=== PATIENT | female | born 1955 | race Caucasian/White ===

== ENCOUNTER 2017-12-30 02:04 | Observation (INO) ==
[2017-12-30 02:21] LABS: Basophils # 0.1 K/mcL (0.0-0.2); Basophils % 0.7 %; Eosinophils # 0.2 K/mcL (0.0-0.6); Eosinophils % 2.3 %; Hematocrit 36.9 % (35.3-44.9); Hemoglobin 11.7 g/dL (11.5-15.4); Immature Granulocytes % 0.2 % (0-4); Lymphocytes # 2.9 K/mcL (0.6-4.6); Lymphocytes % 28.8 %; Mean Corpuscular HGB Conc 31.7 g/dL (31.6-35.5); Mean Corpuscular Hemoglobin 24.4 pg (28.0-33.3); Mean Platelet Volume 10.6 fL (9.4-12.4); Monocytes # 1.1 K/mcL (0.0-1.3); Monocytes % 10.6 %; Neutrophils # 5.8 K/mcL (1.6-8.9); Platelet Count 270 K/mcL (140-400); Red Blood Count 4.79 M/mcL (3.82-4.97); Red Cell Distribution Width 14.8 % (11.5-14.5); Segmented Neutrophils % 57.4 %
[2017-12-30 02:26] LABS: Prothrombin Time 10.5 Seconds (9.4-12.1)
[2017-12-30 02:29] LABS: Activated Partial Thrombo Time 27.4 Seconds (26.0-36.0)
[2017-12-30 02:39] LABS: Troponin I < 0.03 ng/mL (< 0.04)
[2017-12-30] MEDS ORDERED: Ondansetron 4 MG/2 ML VIAL IVP ONE (02:55)
[2017-12-30] MEDS ORDERED: Nitroglycerin 0.4 MG TAB.SUBL SL PRN ×2 (02:55→04:37)
[2017-12-30] MEDS ORDERED: Aspirin 81 MG TAB.CHEW PO ONE (02:55)
[2017-12-30 03:14] LABS: BUN/Creatinine Ratio 17 (6-26); Blood Urea Nitrogen 17 mg/dL (8-23); Calcium 9.2 mg/dL (8.6-10.3); Carbon Dioxide 28 mEq/L (23-29); Chloride 106 mEq/L (98-107); Glucose 86 mg/dL (70-105); Osmolality,Calculated 291 (280-300); Potassium 4.1 mEq/L (3.5-5.1); Sodium 140 mEq/L (136-145); eGFR For African Americans > 60 (> 60); eGFR For Non-African Americans 55 (> 60)
--- NOTE | 2017-12-30 04:06 | Emergency Department Note ---
Disposition Clinical Impression: Chest pain Qualifiers: Chest pain type: precordial pain Qualified Code(s): R07.2 - Precordial pain Disposition: Admitted As Inpatient Condition: Good Referrals: Santiago Hutton [Other] Arlyn Mason MD [Family Provider] - Time of Disposition: 04:13 Chest Pain HPI - General Chief Complaint: ED Chest Pain Stated Complaint: cp/neck pain Time Seen by Provider: 12/30/17 02:08 Source: patient Limitations: no limitations Vital Signs Reviewed: Yes Nursing Notes Reviewed: Yes - History of Present Illness HPI Narrative: 62-year-old female presents to the emergency department with a complaint of substernal chest pain for the past 3 days. The pain is intermittent. No radiation of pain. Some nausea with the pain. Also some shortness of breath. No diaphoresis. No palpitations. Patient describes the pain as a pressure and tightness in the mid chest. It is not associated with exertion and not relieved with rest. Patient has a history of a pacemaker secondary to bradycardia. She states that she had sick sinus syndrome and also a history of atrial tachycardia. No LA or coronary artery disease. She had a cardiac catheterization last February and did not have any stents or intervention. Pt complaint: chest pain Onset (ago): day(s) (3) Duration: intermittent Onset: during rest Pain Location: substernal Severity: moderate Severity scale (1-10): 4 Quality: tightness, aching, heaviness, dull Pain Radiation: none Improves with: nothing Worsens with: nothing Associated symptoms: Reports: nausea, dyspnea. Denies: vomiting, diaphoresis, sense of impending doom, syncope, palpitations, fever, cough, leg swelling Treatments prior to arrival chest pain: none - Related Data Allergies Allergy/AdvReac Type Severity Reaction Status Date / Time codeine AdvReac Itching Verified 12/30/17 02:14 All systems ED: reviewed and negative except as stated. Constitutional: Denies: fever, chills Cardiovascular: Reports: chest pain. Denies: palpitations, edema, syncope Respiratory: Reports: dyspnea. Denies: cough, wheezes, hemoptysis Gastrointestinal: Reports: nausea. Denies: abdominal pain, vomiting Chest Pain PMH - Past Medical History Medical history: Reports: non-contributory Psychiatric history: Reports: no psych history - Social History Smoking Status: Never smoker Alcohol use: Reports: occasionally Drug use: Reports: none Physical Exam - General Limitations: no limitations General appearance: alert, in no apparent distress - Head Head exam: atraumatic, normocephalic, normal inspection - Eye Eye exam: Present: normal appearance, PERRL, EOMI. Absent: scleral icterus, conjunctival injection - ENT ENT exam: normal exam, normal oropharynx, mucous membranes moist - Neck Neck exam: Present: normal inspection, full ROM, trachea midline. Absent: tenderness, meningismus, lymphadenopathy - Chest Chest inspection: Present: normal inspection, symmetric chest wall rise. Absent : tenderness - Respiratory Respiratory exam: Present: normal lung sounds bilaterally. Absent: respiratory distress, wheezes, accessory muscle use - Cardiovascular Cardiovascular exam: Present: regular rate, normal rhythm, normal heart sounds - Abdominal Exam Abdominal exam: Present: soft, Non-Tender, normal bowel sounds. Absent: distention, guarding, rebound, rigidity - Extremities Exam Extremities exam: Present: normal inspection, full ROM. Absent: tenderness, pedal edema - Back Exam Back exam: Present: normal inspection. Absent: CVA tenderness (R), CVA tenderness (L) - Neurological Exam Neurological exam: Present: alert, oriented X3. Absent: motor sensory deficit - Psychiatric Psychiatric exam: Present: normal affect, normal mood - Skin Skin exam: Present: warm, dry, intact, pallor. Absent: cyanosis, diaphoresis Course Course Narrative: 62-year-old female presents complaining of substernal chest pain intermittently over the past 3 days. No radiation but nausea and shortness of breath with the pain. Not related to exertion. No history of coronary artery disease but does have a history of a pacemaker due to sick sinus syndrome and bradycardia. Also history of atrial tachycardia. Chest pain workup initiated. Patient received aspirin 324 mg and one nitroglycerin. No improvement in the chest pain with nitroglycerin developed a severe headache. - Consultations Consultation #1: The hospitalist, Dr. Orellana, was consulted and accepted admission of the patient. Vital Signs Temperature 98.2 F 12/30/17 02:08 Pulse Rate 61 12/30/17 02:08 Respiratory Rate 16 12/30/17 02:08 Blood Pressure 131/73 12/30/17 02:08 O2 Sat by Pulse Oximetry 93 12/30/17 02:08 Temperature 98.2 F 12/30/17 02:08 Pulse Rate 60 12/30/17 03:20 Respiratory Rate 16 12/30/17 02:08 Blood Pressure 113/68 12/30/17 03:20 O2 Sat by Pulse Oximetry 92 12/30/17 03:20 Oxygen Delivery Oxygen Delivery Nasal Cannula Chest Pain - Medical Records Medical records reviewed: Yes I reviewed the patient's medical records. - Lab Data Lab results reviewed: Yes I reviewed the patient's lab results. Result diagrams: 12/30/17 02:07 12/30/17 02:07 Lab Results 12/30/17 12/30/17 12/30/17 Range/Units 02:07 02:07 02:07 WBC 10.0 (4.3-11.1) K/mcL RBC 4.79 (3.82-4.97) M/mcL Hgb 11.7 (11.5-15.4) g/dL Hct 36.9 (35.3-44.9) % MCV 77.0 L (83.0-100.0) fL MCH 24.4 L (28.0-33.3) pg MCHC 31.7 (31.6-35.5) g/dL RDW 14.8 H (11.5-14.5) % Plt Count 270 (140-400) K/mcL MPV 10.6 (9.4-12.4) fL Immature Gran % 0.2 (0-4) % Seg Neutrophils % 57.4 % Lymphocytes % 28.8 % Monocytes % 10.6 % Eosinophils % 2.3 % Basophils % 0.7 % Neutrophils # 5.8 (1.6-8.9) K/mcL Lymphocytes # 2.9 (0.6-4.6) K/mcL Monocytes # 1.1 (0.0-1.3) K/mcL Eosinophils # 0.2 (0.0-0.6) K/mcL Basophils # 0.1 (0.0-0.2) K/mcL PT 10.5 (9.4-12.1) Seconds INR 1.0 APTT 27.4 (26.0-36.0) Seconds Sodium 140 (136-145) mEq/L Potassium 4.1 (3.5-5.1) mEq/L Chloride 106 (98-107) mEq/L Carbon Dioxide 28 (23-29) mEq/L BUN 17 (8-23) mg/dL Creatinine 1.01 (0.60-1.20) mg/dL Est GFR ( Amer) > 60 (> 60) Est GFR (Non-Af Amer) 55 L (> 60) BUN/Creatinine Ratio 17 (6-26) Glucose 86 (70-105) mg/dL Calculated Osmolality 291 (280-300) Calcium 9.2 (8.6-10.3) mg/dL Troponin I < 0.03 (< 0.04) ng/mL - Radiology Data Radiology results reviewed: Yes I reviewed the patient's radiology results. Chest X-Ray 12/30/17 02:14 IMPRESSION: No acute cardiopulmonary abnormality. D/ / Juan Pablo Nguyen MD / Juan Pablo Nguyen MD Interpreting Provider: Juan Pablo Nguyen MD - EKG Data EKG attestation: Yes I reviewed and interpreted this EKG. EKG results narrative: Normal sinus rhythm, ventricular rate 61, AR interval 185, QRS duration 100, QT 405, QTC 409. No acute ST segment elevations or depressions. No arrhythmia or ectopy. Normal EKG.
[2017-12-30] MEDS ORDERED: Naloxone 0.4 MG/ML INJ IVP PRN (04:32)
[2017-12-30] MEDS ORDERED: Acetaminophen 325 MG TABLET PO PRN (04:32)
[2017-12-30] MEDS ORDERED: Aspirin 81 MG TAB.CHEW PO STA (04:35)
--- NOTE | 2017-12-30 04:41 | Internal Med History&Physical ---
Date of Encounter: 12/30/17 Time of Encounter: 04:40 Assessment and Plan (1) Chest pain Current visit: Yes Status: Acute 62/female Background history of AICD placed for sick sinus syndrome/atrial tachycardia History of hypertension/hypercholesterolemia Came in for left precordial chest pain. Heart score: 3 Patient had a cardiac catheterization last year in the month of March. According to patient and her cardiac catheter was within normal limit. On examination: JVP not raised, air entry bilaterally equal, no S3 heard. Assessment Chest pain to rule out ACS Plan: Admit as observation. Aspirin/statin/beta troy Cycle troponin Echocardiogram We need medical records from [facility] Close monitoring of the patient I examined this patient in the emergency department room #5. Plan of care explained to the patient. Patient verbalized understanding. Qualifiers: Chest pain type: unspecified Qualified Code(s): R07.9 - Chest pain, unspecified (2) Hypertension Current visit: Yes Status: Acute Patient's blood pressure is within acceptable range. We will continue same medication for now. We will monitor blood pressure very closely Qualifiers: Hypertension type: essential hypertension Qualified Code(s): I10 - Essential (primary) hypertension (3) AICD (automatic cardioverter/defibrillator) present Current visit: Yes Status: Acute Patient has a AICD placed. Indication: Sick sinus syndrome/atrial tachycardia. At this point I do not see any issues with the AICD (4) DVT prophylaxis Current visit: Yes Status: Acute SCD Medical decision making: This patient has a moderate to severe risk of worsening in spite of being on appropriate medication due to the underlying complex medical condition. Internal Medicine - H&P: HPI Chief complaint: chest pain Admitted From: Emergency Dept Plans for Post Hospital Care: Home History of present illness: PCP: [facility]. Cardiology: [facility]. Brief past medical history: Hypertension, AICD placed for sick sinus syndrome/ atrial tachycardia, hyperlipidemia History of present medical illness: Patient is a resident of [facility], now trying to move to [facility]. Patient was here in [place] with her son who is a drilling manager by profession. She was helping her son to take care of his children. Patient has ongoing chest pain for more than 2-3 weeks. Noted that in last 48 hours her pain was worsening significantly. Patient's pain is left precordial region, sharp in nature, nonradiating, localized, has a stress and movement as a exacerbating factor and pain relieved by rest. Patient was concern for ongoing chest pain. This was the reason she came to emergency room for further evaluation. Patient denies short of breath, abdominal pain, nausea , vomiting, dizziness and diarrhea. Workup in the emergency room: Patient was evaluated in the emergency room. Basic labs were drawn. X-ray chest was negative for any acute process. Reason for admission: Chest pain to rule out ACS. Heart score 3. Family history: Noncontributory Past Med Surg Social Fam HX - Past Medical History Medical history: non-contributory Psychiatric history: no psych history - Social History Smoking Status: Never smoker Alcohol use: occasionally Drug use: none Internal Medicine - H&P: Meds 3 Allergy/AdvReac Type Severity Reaction Status Date / Time codeine AdvReac Itching Verified 12/30/17 02:14 All Systems PM: A 10-system review of systems was performed and is negative for pertinent findings except as documented above in the HPI. - Constitutional Constitutional: no chills, no fever(s), no night sweats - EENT Eyes: no change in vision, no discharge, no pain, no photophobia Ears: no ear discharge, no ear pain, no tinnitus Nose, mouth and throat: no dysphagia, no nasal discharge, no neck pain, no sore throat - Cardiovascular Cardiovascular ROS IM: chest pain, diaphoresis, no dyspnea, no lightheadedness, no palpitations, no syncope - Respiratory Respiratory: no cough, no dyspnea, no wheezing, no excessive phlegm production - Gastrointestinal Gastrointestinal: no abdominal pain, no diarrhea, no hematemesis, no hematochezia, no melena, no nausea, no vomiting - Genitourinary Genitourinary: no change in urinary stream, no dysuria, no flank pain, no hematuria - Musculoskeletal Musculoskeletal ROS IM: no numbness, no tingling - Integumentary Integumentary IM: no rash, no unusual bruising - Neurological Neurological ROS: no confusion, no convulsions, no focal weakness, no numbness, no tingling, no tremor(s) - Hematologic/Lymphatic Hematologic/Lymphatic: no easy bruising - Constitutional Vitals: Temp Pulse Resp BP Pulse Ox 98.2 F 60 16 113/68 92 12/30/17 02:08 12/30/17 03:20 12/30/17 02:08 12/30/17 03:20 12/30/17 03:20 General appearance: Present: A&O X 3, pleasant, no acute distress, answers questions appropriately - Head Head exam: Present: atraumatic, normocephalic - Eye Eye exam: Present: PERRL, conjuntiva pink, sclera anicteric Pupils: Present: PERRL - Neck Neck exam general surgery: Present: supple, trachea midline. Absent: lymphadenopathy - Respiratory Respiratory exam: Present: CTAB. Absent: accessory muscle use, rales, rhonchi, wheezes - Cardiovascular Cardiovascular exam: Present: RRR, +S1, +S2. Absent: diastolic murmur, gallop, rubs, systolic murmur - GI/Abdominal GI/Abdominal exam: Present: normal bowel sounds, soft, no peritoneal signs. Absent: distended, tenderness - Extremities Exam Extremities exam: Present: warm, radial pulses palpable and symmetrical. Absent : calf tenderness, cyanotic, pedal edema - Neurological Exam Neurological exam: Present: CN II-XII intact, oriented X3, no focal deficits. Absent: pronater drift, facial droop, speech deficit - Skin Skin exam: Present: dry, intact Internal Med - H&P Results - Labs CBC & Chem 7: 12/30/17 02:07 12/30/17 02:07 Labs: Short CBC 12/30/17 Range/Units 02:07 WBC 10.0 (4.3-11.1) K/mcL Hgb 11.7 (11.5-15.4) g/dL Hct 36.9 (35.3-44.9) % Plt Count 270 (140-400) K/mcL Neutrophils # 5.8 (1.6-8.9) K/mcL BMP 12/30/17 02:07 Sodium 140 Potassium 4.1 Chloride 106 Carbon Dioxide 28 BUN 17 Creatinine 1.01 Glucose 86 Calcium 9.2 Cardiac Enzymes 12/30/17 Range/Units 02:07 Troponin I < 0.03 (< 0.04) ng/mL - Impressions ITS Impressions Chest X-Ray 12/30/17 02:14 IMPRESSION: No acute cardiopulmonary abnormality. D/ / Juan Pablo Nguyen MD / Juan Pablo Nguyen MD Interpreting Provider: Juan Pablo Nguyen MD
[2017-12-30] MEDS ORDERED: 0.9 % Sodium Chloride 1,000 ML IVC SCH (04:45)
[2017-12-30 05:33] LABS: Basophils # 0.1 K/mcL (0.0-0.2); Basophils % 0.7 %; Eosinophils # 0.2 K/mcL (0.0-0.6); Eosinophils % 2.4 %; Hematocrit 34.4 % (35.3-44.9); Hemoglobin 10.6 g/dL (11.5-15.4); Immature Granulocytes % 0.2 % (0-4); Lymphocytes # 2.2 K/mcL (0.6-4.6); Lymphocytes % 26.8 %; Mean Corpuscular HGB Conc 30.8 g/dL (31.6-35.5); Mean Corpuscular Hemoglobin 23.9 pg (28.0-33.3); Mean Corpuscular Volume 77.7 fL (83.0-100.0); Mean Platelet Volume 10.4 fL (9.4-12.4); Monocytes # 0.8 K/mcL (0.0-1.3); Platelet Count 239 K/mcL (140-400); Red Blood Count 4.43 M/mcL (3.82-4.97); Red Cell Distribution Width 14.9 % (11.5-14.5); Segmented Neutrophils % 59.9 %
[2017-12-30 05:40] LABS: Alanine Aminotransferase 15 Units/L (7-52); Albumin 3.8 g/dL (3.5-5.7); Albumin/Globulin Ratio 1.5 (1.1-2.2); Alkaline Phosphatase 87 Units/L (34-104); Aspartate Amino Transferase 15 Units/L (13-39); BUN/Creatinine Ratio 17 (6-26); Bilirubin,Total 0.4 mg/dL (0.3-1.0); Blood Urea Nitrogen 16 mg/dL (8-23); Calcium 8.9 mg/dL (8.6-10.3); Carbon Dioxide 28 mEq/L (23-29); Chloride 106 mEq/L (98-107); Chol/HDL Ratio 1.9 (0-4.9); Cholesterol 144 mg/dL (< 200); Globulin 2.6 g/dL (2.4-3.5); Glucose 95 mg/dL (70-105); HDL Cholesterol 75 mg/dL (40-59); LDL Cholesterol,Calculated 57 mg/dL (0-99); Magnesium 2.3 mg/dL (1.6-2.6); Osmolality,Calculated 289 (280-300); Phosphorous 3.9 mg/dL (2.7-4.5); Potassium 4.3 mEq/L (3.5-5.1); Sodium 139 mEq/L (136-145); Total Protein 6.4 g/dL (6.4-8.9); Triglycerides 62 mg/dL (< 150); eGFR For African Americans > 60 (> 60); eGFR For Non-African Americans 59 (> 60)
[2017-12-30 05:45] LABS: Prothrombin Time 10.8 Seconds (9.4-12.1)
[2017-12-30 05:47] LABS: Activated Partial Thrombo Time 28.2 Seconds (26.0-36.0)
[2017-12-30] MEDS ORDERED: Ondansetron 4 MG/2 ML VIAL IVP PRN (09:08)
--- NOTE | 2017-12-30 18:32 | Event Note ---
Date of Encounter: 12/30/17 Time of Encounter: 16:00 Patient was seen earlier by cath lab radiology technician - presently she is chest pain-free cardiac enzymes have been negative-we have requested records from [facility] which are still pending. Patient was requesting to be discharged home did discuss the patient is at high risk dt cardiac hx and advised to stay for pharm nuclear cardiac stress which will be performed on Monday, otherwise she would have to sign out AM A. she agreed to stay and finish testing
[2017-12-30] MEDS: BuPROPion XL (24 HR) 150 MG TABLET PO SCH (23:02)
[2017-12-30] MEDS: Diltiazem CD (24hr) 120 MG CAPSULE PO SCH (23:02)
[2017-12-30] MEDS: traZODone 50 MG TABLET PO SCH (23:02)
[2017-12-31] MEDS: Cyanocobalamin (B-12) 1,000 MCG TABLET PO SCH (09:12)
[2017-12-31] MEDS: Aspirin Enteric Coated 81 MG Tablet PO SCH (09:12)
[2017-12-31 09:46] LABS: Basophils # 0.1 K/mcL (0.0-0.2); Basophils % 0.7 %; Eosinophils # 0.2 K/mcL (0.0-0.6); Eosinophils % 2.8 %; Hematocrit 33.7 % (35.3-44.9); Hemoglobin 10.4 g/dL (11.5-15.4); Immature Granulocytes % 0.2 % (0-4); Lymphocytes # 1.4 K/mcL (0.6-4.6); Lymphocytes % 17.1 %; Mean Corpuscular HGB Conc 30.9 g/dL (31.6-35.5); Mean Corpuscular Hemoglobin 24.3 pg (28.0-33.3); Mean Corpuscular Volume 78.7 fL (83.0-100.0); Mean Platelet Volume 10.7 fL (9.4-12.4); Monocytes # 0.9 K/mcL (0.0-1.3); Monocytes % 10.4 %; Neutrophils # 5.6 K/mcL (1.6-8.9); Platelet Count 237 K/mcL (140-400); Red Blood Count 4.28 M/mcL (3.82-4.97); Segmented Neutrophils % 68.8 %
[2017-12-31 09:59] LABS: BUN/Creatinine Ratio 11 (6-26); Blood Urea Nitrogen 11 mg/dL (8-23); Carbon Dioxide 29 mEq/L (23-29); Chloride 107 mEq/L (98-107); Glucose 120 mg/dL (70-105); Osmolality,Calculated 289 (280-300); Potassium 4.1 mEq/L (3.5-5.1); Sodium 139 mEq/L (136-145); eGFR For African Americans > 60 (> 60); eGFR For Non-African Americans 55 (> 60)
--- NOTE | 2017-12-31 15:27 | Internal Med Progress Note ---
Date of Encounter: 12/31/17 Time of Encounter: 15:21 - Assessment and plan (1) Chest pain Current Visit: Yes Status: Acute Assessment and plan: 1 originally presented with chest pain that she is experiencing for 2 weeks pain occurring left precordial region describes as sharp nonradiating there are no aggravating or relieving factors pain usually resolves on its. The past 3 days pain has been worsening patient states she has been under a lot of stress. She received nitroglycerin in the ER with no improvement Patient does have a cardiac history last year she underwent a cardiac catheterization [facility] which she did not receive any stents however she had pacemaker placement for sick sinus syndrome/atrial tachycardia which was placed at [facility] we have requested records several times and still awaiting records will have nursing follow-up on Monday-her pipe covering molder is in [place] and she is in the process of moving to [place] and has not established a pipe covering molder in this area at this time- troponins have been negative 2 echo has been ordered 3 patient will stay overnight because cardiac stress are not completed on Monday we will make the patient nothing by mouth at midnight and she will undergo a nuc/pharm cardiac stress test in am 4 continuous cardiac monitoring 5 nitroglycerin as seen for chest pain 6 continue aspirin and statin beta troy Qualifiers: Chest pain type: unspecified Qualified Code(s): R07.9 - Chest pain, unspecified (2) Hypertension Current Visit: Yes Status: Acute Assessment and plan: Presently controlled we will continue with beta troy Qualifiers: Hypertension type: essential hypertension Qualified Code(s): I10 - Essential (primary) hypertension (3) History of permanent cardiac pacemaker placement Current Visit: Yes Status: Acute Assessment and plan: Patient has a history of sick sinus syndrome and had a pacemaker placed last year at [facility]-we will obtain records from [facility] cardiology - Time Spent With Patient less than 15 minutes - Subjective Interval history: Patient denies any chest pain or shortness of breath-she will be nothing by mouth after midnight for stress test in a.m. - Constitutional Vitals: Temp Pulse Resp BP Pulse Ox 98.9 F 64 15 105/68 93 12/31/17 11:18 12/31/17 11:18 12/31/17 11:18 12/31/17 11:18 12/31/17 11:18 General appearance: Present: A&O X 3, pleasant, no acute distress, answers questions appropriately - Head Head exam: Present: atraumatic, normocephalic - Eye Eye exam: Present: PERRL, conjuntiva pink, sclera anicteric Pupils: Present: PERRL - Neck Neck exam general surgery: Present: supple, trachea midline. Absent: lymphadenopathy - Respiratory Respiratory exam: Present: CTAB. Absent: accessory muscle use, rales, rhonchi, wheezes - Cardiovascular Cardiovascular exam: Present: RRR, +S1, +S2. Absent: diastolic murmur, gallop, rubs, systolic murmur - GI/Abdominal GI/Abdominal exam: Present: normal bowel sounds, soft, no peritoneal signs. Absent: distended, tenderness - Extremities Exam Extremities exam: Present: warm, radial pulses palpable and symmetrical. Absent : calf tenderness, cyanotic, pedal edema - Neurological Exam Neurological exam: Present: CN II-XII intact, oriented X3, no focal deficits. Absent: pronater drift, facial droop, speech deficit - Skin Skin exam: Present: dry, intact Internal Medicine: Result - Labs CBC & Chem 7: 12/31/17 08:28 12/31/17 08:28 Labs: Short CBC 12/31/17 Range/Units 08:28 WBC 8.2 (4.3-11.1) K/mcL Hgb 10.4 L (11.5-15.4) g/dL Hct 33.7 L (35.3-44.9) % Plt Count 237 (140-400) K/mcL Neutrophils # 5.6 (1.6-8.9) K/mcL BMP 12/31/17 08:28 Sodium 139 Potassium 4.1 Chloride 107 Carbon Dioxide 29 BUN 11 Creatinine 1.01 Glucose 120 H Calcium 9.0 Cardiac Enzymes 12/30/17 Range/Units 16:55 Troponin I < 0.03 (< 0.04) ng/mL - ABG Interpretation ABG results: PT/INR, D-dimer PT 10.8 Seconds (9.4-12.1) 12/30/17 04:57 Consult Discharge Plan - Plan Referrals: Santiago Hutton [Other] Arlyn Mason MD [Family Provider] -
[2017-12-31] MEDS: traZODone 50 MG TABLET PO SCH (22:54)
[2017-12-31] MEDS: BuPROPion XL (24 HR) 150 MG TABLET PO SCH (22:57)
[2017-12-31] MEDS: Diltiazem CD (24hr) 120 MG CAPSULE PO SCH (22:57)
[2018-01-01] MEDS ORDERED: Regadenoson 0.4 MG/5 ML SYRINGE IVP ONE (06:16)
[2018-01-01] MEDS: Aspirin Enteric Coated 81 MG Tablet PO SCH (11:42)
[2018-01-01] MEDS: Cyanocobalamin (B-12) 1,000 MCG TABLET PO SCH (11:43)
[2018-01-01 15:03] VITALS: BP 113/70
--- NOTE | 2018-01-01 17:27 | Discharge Summary ---
- NOTES TO OUTPATIENT PROVIDER Notes to Outpatient Provider: To follow up with primary care physician, negative stress test for ischemia or infarct Orders not resulted at time of discharge: Pending orders 12/31/17 15:51 NM deanne perf SPECT multi [NM] Routine 01/01/18 14:34 Venous Doppler [EV venous imaging LE RT] Routine Date of Encounter: 01/01/18 Time of Encounter: 17:25 - Discharge Diagnosis (1) Right calf pain Priority: Primary Status: Acute Comments: Patient complained of right calf pain with no physical findings. Doppler was ordered and is negative for DVT (2) Chest pain Priority: Primary Status: Acute Comments: Patient presented with chest pain that she states she was experiencing for 2 weeks. Occurred left precordial region described as sharp and nonradiating with no aggravating or relieving factors and usually resolved with rest. Over the past 3 days the pain had been worsening and she also reported she was under a lot of stress. She received nitroglycerin in the ER with no improvement of her pain. She does have a history of coronary disease. She underwent a cardiac catheterization at [facility] with no stents but placement of a pacemaker for sick sinus syndrome atrial tachycardia. Troponins were negative. She is moving to [place] and has not established with a management consultant in the area at this time. Patient had a stress test today that was negative for ischemia or infarct. She will continue her routine home meds including aspirin and statin as well as beta troy. Qualifiers: Chest pain type: unspecified Qualified Code(s): R07.9 - Chest pain, unspecified (3) History of permanent cardiac pacemaker placement Priority: Secondary Status: Chronic Comments: Patient had pacemaker implant at [facility] (4) Hypertension Priority: Secondary Status: Chronic Comments: Blood pressure has been stable Qualifiers: Hypertension type: essential hypertension Qualified Code(s): I10 - Essential (primary) hypertension Hospital course: Ms. Mccall is a 62 year old female who presented with chest pain. She had negative troponins. 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 Her stress test was negative for ischemia or infarct. She will be discharged home on her current medication regime. Vital signs have been stable. Discharge discussed with: patient, nurse - Time Spent with Patient Total time spent providing and/or coordinating discharge services: Less than 30 minutes - Discharge Medications Home Medications: Aspirin Enteric Coated [Aspirin EC] 81 mg PO QAM 12/30/17 [History] Atorvastatin Calcium [Lipitor] 20 mg PO QAM 12/30/17 [History] BuPROPion XL (24 HR) [Wellbutrin Xl] 150 mg PO HS 12/30/17 [History] Cyanocobalamin (Vitamin B-12) [Vitamin B12] 1,000 mcg PO QAM 12/30/17 [History] Ergocalciferol (VITAMIN D2) [Vitamin D2] 50,000 unit PO RETANA 12/30/17 [History] Levothyroxine Sodium [Levoxyl] 88 mcg PO QAM 12/30/17 [History] Omeprazole [PriLOSEC] 40 mg PO QAM 12/30/17 [History] Paroxetine HCl [Paxil] 40 mg PO HS 12/30/17 [History] Trazodone HCl 100 mg PO HS 12/30/17 [History] dilTIAZem HCl [Diltiazem 24Hr ER] 120 mg PO HS 12/30/17 [History] Allergies/Adverse Reactions: 3 Allergy/AdvReac Type Severity Reaction Status Date / Time codeine AdvReac Itching Verified 12/30/17 02:14 Date of admission: 12/30/17 05:51 Primary care physician: Santiago Hutton Discharging clinician: Kylee Hanson Anticipated date of discharge: 01/01/18 - Constitutional Vitals: Temp Pulse Resp BP Pulse Ox 98.8 F 61 15 113/70 94 01/01/18 15:01 01/01/18 15:01 01/01/18 15:01 01/01/18 15:01 01/01/18 15:01 General appearance: Present: cooperative, A&O X 3, pleasant, answers questions appropriately - Head Head exam: Present: atraumatic, normocephalic - Eye Eye exam: Present: PERRL, conjuntiva pink, sclera anicteric Pupils: Present: PERRL - Neck Neck exam general surgery: Present: supple, trachea midline. Absent: lymphadenopathy - Respiratory Respiratory exam: Present: CTAB. Absent: accessory muscle use, rales, rhonchi, wheezes - Cardiovascular Cardiovascular exam: Present: RRR, +S1, +S2. Absent: diastolic murmur, gallop, rubs, systolic murmur - GI/Abdominal GI/Abdominal exam: Present: normal bowel sounds, soft, no peritoneal signs. Absent: distended, tenderness - Extremities Exam Extremities exam: Present: warm, radial pulses palpable and symmetrical. Absent : calf tenderness, cyanotic, pedal edema - Neurological Exam Neurological exam: Present: CN II-XII intact, oriented X3, no focal deficits. Absent: pronater drift, facial droop, speech deficit - Skin Skin exam: Present: dry, intact, normal color, warm - Patient Status Disposition: Home, Self-Care Condition: Good Functional capacity at discharge: independent ambulation Overall status at discharge: patient is back to baseline - Discharge Instructions Follow Up With: Santiago Hutton [Other] Arlyn Mason MD [Family Provider] - - Diet and Activity Activity: increase activity as tolerated, resume usual activities as tolerated Diet: advance to your usual diet
--- NOTE | 2018-01-02 19:57 | Electrocardiograph Report ---
[place] [id number] Test Date: 2017-12-30 Pat Name: Julianne Mccall Department: 103 Room: [facility] Gender: F Clinical Project Coordinator: [facility] : 1955 Requested By: Yunior Pelaez Order Number: [id number] Reading MD: Nuria Cam Measurements Intervals [place] Rate: 61 P: 17 OR: 185 QRS: -14 QRSD: 100 T: 48 QT: 405 QTc: 409 Interpretive Statements SINUS RHYTHM Electronically Signed On 01-02-2018 19:55:31 EST by Nuria Cam
== END 2018-01-01 18:30 | disposition home or self-care (01) ==
LOC: 3BNU 02:04 → EMEROO 02:04 → SUATTDRO 05:51 → 3BNU 06:30
PROVIDERS: ADMIT Internal Medicine; ATTEND Nurse Practitioner Family

== ENCOUNTER 2018-02-04 19:11 | Observation (INO) ==
--- NOTE | 2018-02-04 19:18 | Emergency Department Note ---
START Narrative - START START: I examined this patient and my medical decision-making was reviewed with the Resident Physician. I agree with the documented findings, disposition and treatment plan as described except to the extent set forth below. 62 yo F presents with chest pain. brought in via ems. they thought she was having runs of V tach. she has a pacer. she is still having ongoing chest pain. she reports cardiac cath last year with no stents placed. will eval for ACS and chest pain work up. pt will need to be admitted due to her history.
--- NOTE | 2018-02-04 19:20 | Emergency Department Note ---
Disposition Clinical Impression: Chest pain Qualifiers: Chest pain type: unspecified Qualified Code(s): R07.9 - Chest pain, unspecified Dyspnea Qualifiers: Dyspnea type: unspecified Qualified Code(s): R06.00 - Dyspnea, unspecified Disposition: Admitted As Inpatient Condition: Good Referrals: Arlyn Mason MD [Family Provider] - Dariana Steiner MD [Primary Care Provider] - Forms: ED Satisfaction Letter Time of Disposition: 21:03 Chest Pain HPI - General Chief Complaint: ED Chest Pain Stated Complaint: chest pain Time Seen by Provider: 02/04/18 19:16 Source: patient, EMS Mode of arrival: EMS Limitations: no limitations Vital Signs Reviewed: Yes Nursing Notes Reviewed: Yes - History of Present Illness HPI Narrative: Patient is a 62-year-old female with past medical history of sick sinus syndrome , has a pacemaker placed, hypertension. She presents today via EMS due to chest pain. EMS states that patient had runs of V. tach while in route but did not require any additional intervention. She states this pain started about an hour ago, as located under her left breast with mild radiation to her back. Denies any associated nausea, vomiting sweating. She does admit to some mild dyspnea. This started while she was at rest sitting in her chair, denies any exertional component. It is rated a 10 out of 10 when it began. She took one nitroglycerin at home and instructed to get down to an 8 out of 10. After that , to call the squad. She was given aspirin 325 mg and an additional nitroglycerin which she states took her pain down to a 5 and is now back up to an 8 out of 10. She does report that she has had recent stress testing and cardiac evaluation. According to previous reports, patient has had an echo and nuclear stress testing in December 2017. Stress testing showed no areas of ischemia. Echocardiogram showed mild LV dysfunction. Patient denies any other belly pain, dysuria, hematuria, numbness, tingling, weakness. Severity scale (1-10): 9 - Related Data Home Medications Medication Instructions Recorded Confirmed Aspirin Enteric Coated [Aspirin EC] 81 mg PO QAM 12/30/17 12/30/17 Atorvastatin Calcium [Lipitor] 20 mg PO QAM 12/30/17 12/30/17 BuPROPion XL (24 HR) [Wellbutrin 150 mg PO HS 12/30/17 12/30/17 Xl] Cyanocobalamin (Vitamin B-12) 1,000 mcg PO QAM 12/30/17 12/30/17 [Vitamin B12] Ergocalciferol (VITAMIN D2) 50,000 unit PO 12/30/17 12/30/17 [Vitamin D2] Levothyroxine Sodium [Levoxyl] 88 mcg PO QAM 12/30/17 12/30/17 Omeprazole [PriLOSEC] 40 mg PO QAM 12/30/17 12/30/17 Paroxetine HCl [Paxil] 40 mg PO HS 12/30/17 12/30/17 Trazodone HCl 100 mg PO 12/30/17 12/30/17 dilTIAZem HCl [Diltiazem 24Hr ER] 120 mg PO HS 12/30/17 12/30/17 Allergies Allergy/AdvReac Type Severity Reaction Status Date / Time codeine AdvReac Itching Verified 12/30/17 02:14 All systems ED: reviewed and negative except as stated. Constitutional: Denies: fever Cardiovascular: Reports: chest pain. Denies: dyspnea on exertion Respiratory: Reports: dyspnea. Denies: cough Gastrointestinal: Denies: abdominal pain, nausea, vomiting, diarrhea Genitourinary: Denies: urgency, dysuria, frequency, hematuria Integumentary: Denies: rash Neurological: Denies: weakness, numbness, paresthesias Chest Pain PMH - Past Medical History Medical history: Reports: non-contributory Psychiatric history: Reports: no psych history - Social History Smoking Status: Never smoker Alcohol use: Reports: occasionally Drug use: Reports: none Physical Exam - General Limitations: no limitations General appearance: alert, in no apparent distress - Head Head exam: atraumatic, normocephalic, normal inspection - Eye Eye exam: Present: normal appearance, PERRL, EOMI - ENT ENT exam: normal exam, normal oropharynx, mucous membranes moist - Neck Neck exam: Present: normal inspection, full ROM, trachea midline - Chest Chest inspection: Present: normal inspection, symmetric chest wall rise. Absent : tenderness, rash - Respiratory Respiratory exam: Present: normal lung sounds bilaterally - Cardiovascular Cardiovascular exam: Present: regular rate, normal rhythm, normal heart sounds - Abdominal Exam Abdominal exam: Present: soft, Non-Tender. Absent: tenderness, distention, guarding, rebound, rigidity - Extremities Exam Extremities exam: Present: normal inspection, full ROM. Absent: tenderness, pedal edema - Neurological Exam Neurological exam: Present: alert, oriented X3 - Psychiatric Psychiatric exam: Present: normal affect, normal mood - Skin Skin exam: Present: warm, dry, intact, normal color Course Course Narrative: Patient was mildly hypertensive. Otherwise, the rest of the vitals were within normal limits. Physical exam was fairly benign. Patient did have relief with previous nitroglycerin prior to arrival. We will give the patient another nitroglycerin and see if this helps. If so, we will start the patient on a nitroglycerin drip. EKG was obtained at bedside and showed no signs of STEMI. No signs of any beats of V tach. Normal sinus rhythm with no acute ST changes. We will obtain chest x-ray and basic blood work, troponin level. If the patient has continued pain, she will need to be admitted for further care. 21:01 troponin negative. Chest x-ray showed no acute cardiopulmonary process. EKG showed no acute ST changes. Patient was placed on nitroglycerin drip. No heparin started at this time because of no elevation in troponin and, negative stress echo testing recently. I discussed the case with the hospitalist Dr. Martinez who agreed not to start heparin at this time. Patient will be admitted for chest pain rule out and trending of troponins. Vital Signs Temperature 98.0 F 02/04/18 19:12 Pulse Rate 68 02/04/18 19:12 Respiratory Rate 16 02/04/18 19:12 Blood Pressure 130/84 02/04/18 19:12 O2 Sat by Pulse Oximetry 93 02/04/18 19:12 Temperature 98.0 F 02/04/18 19:12 Pulse Rate 59 02/04/18 20:49 Respiratory Rate 16 02/04/18 20:49 Blood Pressure 131/66 02/04/18 20:49 O2 Sat by Pulse Oximetry 99 02/04/18 20:49 Oxygen Delivery Oxygen Delivery Nasal Cannula Chest Pain - MDM Narrative Medical decision making narrative: Patient was mildly hypertensive. Otherwise, the rest of the vitals were within normal limits. Physical exam was fairly benign. Patient did have relief with previous nitroglycerin prior to arrival. We will give the patient another nitroglycerin and see if this helps. If so, we will start the patient on a nitroglycerin drip. EKG was obtained at bedside and showed no signs of STEMI. No signs of any beats of V tach. Normal sinus rhythm with no acute ST changes. We will obtain chest x-ray and basic blood work, troponin level. If the patient has continued pain, she will need to be admitted for further care. 21:01 troponin negative. Chest x-ray showed no acute cardiopulmonary process. EKG showed no acute ST changes. Patient was placed on nitroglycerin drip. No heparin started at this time because of no elevation in troponin and, negative stress echo testing recently. I discussed the case with the hospitalist Dr. Martinez who agreed not to start heparin at this time. Patient will be admitted for chest pain rule out and trending of troponins. - Medical Records Medical records reviewed: Yes I reviewed the patient's medical records. - Lab Data Lab results reviewed: Yes I reviewed the patient's lab results. Result diagrams: 02/04/18 19:19 02/04/18 19:19 Lab Results 02/04/18 02/04/18 02/04/18 Range/Units 19:19 19:19 19:19 WBC 7.3 (4.3-11.1) K/mcL RBC 4.34 (3.82-4.97) M/mcL Hgb 10.5 L (11.5-15.4) g/dL Hct 33.4 L (35.3-44.9) % MCV 77.0 L (83.0-100.0) fL MCH 24.2 L (28.0-33.3) pg MCHC 31.4 L (31.6-35.5) g/dL RDW 15.4 H (11.5-14.5) % Plt Count 230 (140-400) K/mcL MPV 10.3 (9.4-12.4) fL Immature Gran % 0.3 (0-4) % Seg Neutrophils % 51.9 % Lymphocytes % 35.6 % Monocytes % 9.3 % Eosinophils % 2.2 % Basophils % 0.7 % Neutrophils # 3.8 (1.6-8.9) K/mcL Lymphocytes # 2.6 (0.6-4.6) K/mcL Monocytes # 0.7 (0.0-1.3) K/mcL Eosinophils # 0.2 (0.0-0.6) K/mcL Basophils # 0.1 (0.0-0.2) K/mcL PT 11.0 (9.4-12.1) Seconds INR 1.0 APTT 34.0 (26.0-36.0) Seconds Sodium 139 (136-145) mEq/L Potassium 4.3 (3.5-5.1) mEq/L Chloride 105 (98-107) mEq/L Carbon Dioxide 27 (23-29) mEq/L BUN 17 (8-23) mg/dL Creatinine 1.00 (0.60-1.20) mg/dL Est GFR ( Amer) > 60 (> 60) Est GFR (Non-Af Amer) 56 L (> 60) BUN/Creatinine Ratio 17 (6-26) Glucose 103 (70-105) mg/dL Calculated Osmolality 290 (280-300) Calcium 9.2 (8.6-10.3) mg/dL Troponin I < 0.03 (< 0.04) ng/mL - Radiology Data Radiology results reviewed: Yes I reviewed the patient's radiology results. Chest X-Ray 02/04/18 19:18 IMPRESSION: No acute cardiopulmonary disease. D/ / Santiago Shetty MD / Santiago Shetty MD Interpreting Provider: Santiago Shetty MD - EKG Data EKG attestation: Yes I reviewed and interpreted this EKG. EKG results narrative: 02/04/2018 at 19:12. Sinus bradycardia. Rate 59. TX 204. QRS 88. QTC 401. Mild left axis deviation. No acute ST elevation or depression. No acute changes from previous EKG on 12/30/2017 S.B.AEvaristoR. - S.B.A.R. Situation: Demographics, MOA Background: Presenting Complaint, Relevant PMH, Meds, & Allergies Assessment: Vital Signs, Course and respsone to treatment, Exam Concerns, Patient/Family Expectation, Pertinant Lab Results Recommendation: Barrier(s) to disposition, Recommendation based on pending studies, treatments, or consults S.B.A.REvaristo Report Given to: Dr. Juan Mccollum Repor Time: 21:03
[2018-02-04] MEDS: Nitroglycerin 0.4 MG TAB.SUBL SL PRN (19:28)
[2018-02-04 19:31] LABS: Basophils # 0.1 K/mcL (0.0-0.2); Basophils % 0.7 %; Eosinophils # 0.2 K/mcL (0.0-0.6); Eosinophils % 2.2 %; Hematocrit 33.4 % (35.3-44.9); Hemoglobin 10.5 g/dL (11.5-15.4); Immature Granulocytes % 0.3 % (0-4); Lymphocytes # 2.6 K/mcL (0.6-4.6); Lymphocytes % 35.6 %; Mean Corpuscular HGB Conc 31.4 g/dL (31.6-35.5); Mean Corpuscular Hemoglobin 24.2 pg (28.0-33.3); Mean Platelet Volume 10.3 fL (9.4-12.4); Monocytes # 0.7 K/mcL (0.0-1.3); Monocytes % 9.3 %; Neutrophils # 3.8 K/mcL (1.6-8.9); Platelet Count 230 K/mcL (140-400); Red Blood Count 4.34 M/mcL (3.82-4.97); Red Cell Distribution Width 15.4 % (11.5-14.5); Segmented Neutrophils % 51.9 %
[2018-02-04 19:59] LABS: BUN/Creatinine Ratio 17 (6-26); Blood Urea Nitrogen 17 mg/dL (8-23); Calcium 9.2 mg/dL (8.6-10.3); Carbon Dioxide 27 mEq/L (23-29); Chloride 105 mEq/L (98-107); Glucose 103 mg/dL (70-105); Osmolality,Calculated 290 (280-300); Potassium 4.3 mEq/L (3.5-5.1); Sodium 139 mEq/L (136-145); Troponin I < 0.03 ng/mL (< 0.04); eGFR For African Americans > 60 (> 60); eGFR For Non-African Americans 56 (> 60)
[2018-02-04] MEDS ORDERED: Nitroglycerin 25 MG/250 ML INFUS..BTL IVC SCH (20:15)
[2018-02-04] MEDS ORDERED: traMADol 50 MG TABLET PO PRN (21:29)
[2018-02-04] MEDS ORDERED: Acetaminophen 325 MG TABLET PO PRN (21:29)
[2018-02-04] MEDS ORDERED: Naloxone 0.4 MG/ML INJ IVP PRN (21:29)
--- NOTE | 2018-02-04 21:36 | Internal Med History&Physical ---
<Karen Valencia - Last Filed: 02/04/18 21:39> Date of Encounter: 02/04/18 Time of Encounter: 21:34 Internal Medicine - H&P: HPI Admitted From: Home Plans for Post Hospital Care: Home History of present illness: Patient is a 62-year-old female with past medical history of sick sinus syndrome , has a pacemaker placed, hypertension. She presents today via EMS due to chest pain. EMS states that patient had runs of V. tach while in route but did not require any additional intervention. She states this pain started about an hour ago, as located under her left breast with mild radiation to her back. Denies any associated nausea, vomiting sweating. She does admit to some mild dyspnea. This started while she was at rest sitting in her chair, denies any exertional component. It is rated a 10 out of 10 when it began. She took one nitroglycerin at home and instructed to get down to an 8 out of 10. After that , to call the squad. She was given aspirin 325 mg and an additional nitroglycerin which she states took her pain down to a 5 and is now back up to an 8 out of 10. She does report that she has had recent stress testing and cardiac evaluation. According to previous reports, patient has had an echo and nuclear stress testing in December 2017. Stress testing showed no areas of ischemia. Echocardiogram showed mild LV dysfunction. Patient denies any other belly pain, dysuria, hematuria, numbness, tingling, weakness. In route to the hospital, she was found to have 1 episode of nonsustained V. tach, which resolved spontaneously. At the ED, her vital signs were stable, labs were unremarkable. Nitroglycerin glycerin drip was started. EKG did not reveal any acute ST-T change. She will be admitted as observation. Past Med Surg Social Fam HX - Past Medical History Medical history: non-contributory Psychiatric history: no psych history - Social History Smoking Status: Never smoker Alcohol use: occasionally Drug use: none - Family History Father Hx Family Cardiac Disorders: Yes (HTN) Internal Medicine - H&P: Meds Aspirin Enteric Coated [Aspirin EC] 81 mg PO QAM 12/30/17 [History] Atorvastatin Calcium [Lipitor] 20 mg PO QAM 12/30/17 [History] BuPROPion XL (24 HR) [Wellbutrin Xl] 150 mg PO HS 12/30/17 [History] Cyanocobalamin (Vitamin B-12) [Vitamin B12] 1,000 mcg PO QAM 12/30/17 [History] Ergocalciferol (VITAMIN D2) [Vitamin D2] 50,000 unit PO RETANA 12/30/17 [History] Levothyroxine Sodium [Levoxyl] 88 mcg PO QAM 12/30/17 [History] Omeprazole [PriLOSEC] 40 mg PO QAM 12/30/17 [History] Paroxetine HCl [Paxil] 40 mg PO HS 12/30/17 [History] Trazodone HCl 100 mg PO HS 12/30/17 [History] dilTIAZem HCl [Diltiazem 24Hr ER] 120 mg PO HS 12/30/17 [History] 3 Allergy/AdvReac Type Severity Reaction Status Date / Time codeine AdvReac Itching Verified 12/30/17 02:14 All Systems PM: A 10-system review of systems was performed and is negative for pertinent findings except as documented above in the HPI. Review of systems: REVIEW OF SYSTEMS: CONSTITUTIONAL: No weight loss, fever, chills, weakness or fatigue. HEENT: Eyes: No visual loss, blurred vision, double vision or yellow sclerae. Ears, Nose, Throat: No hearing loss, sneezing, congestion, runny nose or sore throat. SKIN: No rash or itching. CARDIOVASCULAR: see HPI. RESPIRATORY: No shortness of breath, cough or sputum. GASTROINTESTINAL: No anorexia, nausea, vomiting or diarrhea. No abdominal pain or blood. GENITOURINARY: No dysuria, urgency, or frequency. NEUROLOGICAL: No headache, dizziness, syncope, paralysis, ataxia, numbness or tingling in the extremities. No change in bowel or bladder control. MUSCULOSKELETAL: No muscle, back pain, joint pain or stiffness. HEMATOLOGIC: No anemia, bleeding or bruising. LYMPHATICS: No enlarged nodes. No history of splenectomy. PSYCHIATRIC: No history of depression or anxiety. ENDOCRINOLOGIC: No reports of sweating, cold or heat intolerance. No polyuria or polydipsia. - Constitutional Vitals: Temp Pulse Resp BP Pulse Ox 98.0 F 59 16 131/66 99 02/04/18 19:12 02/04/18 20:49 02/04/18 20:49 02/04/18 20:49 02/04/18 20:49 Exam: PHYSICAL EXAMINATION: GENERAL APPEARANCE: The patient is alert, oriented and in no acute distress. HEENT: Head is normocephalic. The sinuses are nontender. Pupils are equal and reactive. The nares are patent. Oropharynx clear without lesions. NECK: Supple without lymphadenopathy. HEART: Regular rate and rhythm. LUNGS: No crackles or wheezes are heard. ABDOMEN: Soft, nontender, nondistended with good bowel sounds heard. Inguinal area is normal. EXTREMITIES: Without cyanosis, clubbing or edema. NEUROLOGICAL: Gross nonfocal. SKIN: Warm and dry without any rash. Internal Med - H&P Results - Labs CBC & Chem 7: 02/04/18 19:19 02/04/18 19:19 Labs: Short CBC 02/04/18 Range/Units 19:19 WBC 7.3 (4.3-11.1) K/mcL Hgb 10.5 L (11.5-15.4) g/dL Hct 33.4 L (35.3-44.9) % Plt Count 230 (140-400) K/mcL Neutrophils # 3.8 (1.6-8.9) K/mcL BMP 02/04/18 19:19 Sodium 139 Potassium 4.3 Chloride 105 Carbon Dioxide 27 BUN 17 Creatinine 1.00 Glucose 103 Calcium 9.2 Cardiac Enzymes 02/04/18 Range/Units 19:19 Troponin I < 0.03 (< 0.04) ng/mL - Impressions ITS Impressions Chest X-Ray 02/04/18 19:18 IMPRESSION: No acute cardiopulmonary disease. D/ / Santiago Shetty MD / Santiago Shetty MD Interpreting Provider: Santiago Shetty MD - Assessment and plan (1) Chest pain Current Visit: Yes Status: Acute Assessment and plan: - Typical chest pain, CV risk factors including hypertension. -EKG no acute ST-T change, troponin negative for the first set. suspicious for unstable angina. - Continue telemetry monitoring, continue Nitro gtt. - Pacemaker interrogation in the morning. - Consult cardiology if indicated. Qualifiers: Chest pain type: unspecified Qualified Code(s): R07.9 - Chest pain, unspecified (2) Hypertension Current Visit: No Status: Chronic Assessment and plan: - BP controlled, continue home medications. Qualifiers: Hypertension type: essential hypertension Qualified Code(s): I10 - Essential (primary) hypertension (3) History of permanent cardiac pacemaker placement Current Visit: No Status: Acute Assessment and plan: - As above. (4) Sick sinus syndrome Current Visit: No Status: Chronic Assessment and plan: - Has a pacemaker. (5) Nonsustained ventricular tachycardia Current Visit: Yes Status: Acute Assessment and plan: - 1 episode of nonsustained V. tach, resolved spontaneously. - Potassium and a calcium within normal limits, will check magnesium. - EKG sinus rhythm with first-degree AV block. Normal QTC. - Pacemaker interrogation in the morning. - Time Spent With Patient Total time spent is greater than 50% in coordination of care (as documented) at patient's floor/unit and/or counseling patient: Greater than 35 minutes <Aida Mcduffie - Last Filed: 02/05/18 05:17> Date of Encounter: 02/04/18 Internal Medicine - H&P: HPI History of present illness: Ms. Mccall is a 62 year old female All Systems PM: A 10-system review of systems was performed and is negative for pertinent findings except as documented above in the HPI. - Constitutional Vitals: Temp Pulse Resp BP Pulse Ox 97.7 F 61 15 106/68 100 02/05/18 04:01 02/05/18 04:01 02/05/18 04:01 02/05/18 04:01 02/05/18 04:01 Internal Med - H&P Results - Labs CBC & Chem 7: 02/05/18 04:00 02/05/18 04:00 Labs: Short CBC 02/05/18 Range/Units 04:00 WBC 7.1 (4.3-11.1) K/mcL Hgb 10.2 L (11.5-15.4) g/dL Hct 32.6 L (35.3-44.9) % Plt Count 207 (140-400) K/mcL BMP 02/05/18 04:00 Sodium 140 Potassium 3.9 Chloride 107 Carbon Dioxide 33 H BUN 15 Creatinine 0.87 Glucose 91 Calcium 8.9 Cardiac Enzymes 02/05/18 Range/Units 04:00 Troponin I < 0.03 (< 0.04) ng/mL - Attending Attestation I have personally performed a face to face evaluation on this patient. I have reviewed and agree with the care plan provided by LALO Valencia . History and Exam by me shows: Ms. Mccall is a 62 y/o F with past medical history of sick sinus syndrome, has a pacemaker placed and hypertension who recently had negative NM stress test on 01/01/18 now she presented to ER sudden onset left side chest pain radiating to her neck. Pt stated her CP slightly relived with Nitro. So pt was started on Nitro gtt in the ER. Now she feels better. Gen: A,A< O x3 Chest : Diminishes BS b/l no crackles Heart: S1S2 + RRR No murmurs Abd: Soft NT a/p 1. Acute unstable angina so far negative trop no acute EKG changes however her CP is angina equivalent and improved with Nitro so started her on Heparin gtt Titrate the Nitro as she tolerates Card consulted for further eval 2. NSVT Need pacemaker interrogation close monitoring of K+ and Mg - Assessment and plan (1) Chest pain Current Visit: Yes Status: Acute Qualifiers: Chest pain type: unspecified Qualified Code(s): R07.9 - Chest pain, unspecified (2) Hypertension Current Visit: No Status: Chronic Qualifiers: Hypertension type: essential hypertension Qualified Code(s): I10 - Essential (primary) hypertension (3) History of permanent cardiac pacemaker placement Current Visit: No Status: Acute (4) Sick sinus syndrome Current Visit: No Status: Chronic (5) Nonsustained ventricular tachycardia Current Visit: Yes Status: Acute - Time Spent With Patient Total time spent is greater than 50% in coordination of care (as documented) at patient's floor/unit and/or counseling patient:
[2018-02-04] MEDS ORDERED: Heparin 25,000 UNIT/500 ML D5W 25,000 UNIT/500 ML BAG IVC SCH (22:00)
[2018-02-05] MEDS ORDERED: traZODone 50 MG TABLET PO SCH (01:00)
[2018-02-05] MEDS: BuPROPion XL (24 HR) 150 MG TABLET PO SCH ×3 (02:18→21:49)
[2018-02-05 04:38] LABS: Hematocrit 32.6 % (35.3-44.9); Hemoglobin 10.2 g/dL (11.5-15.4); Mean Corpuscular HGB Conc 31.3 g/dL (31.6-35.5); Mean Corpuscular Volume 76.7 fL (83.0-100.0); Mean Platelet Volume 10.6 fL (9.4-12.4); Platelet Count 207 K/mcL (140-400); Red Blood Count 4.25 M/mcL (3.82-4.97); Red Cell Distribution Width 15.8 % (11.5-14.5)
[2018-02-05 04:59] LABS: BUN/Creatinine Ratio 17 (6-26); Blood Urea Nitrogen 15 mg/dL (8-23); Calcium 8.9 mg/dL (8.6-10.3); Chloride 107 mEq/L (98-107); Cholesterol 127 mg/dL (< 200); Glucose 91 mg/dL (70-105); HDL Cholesterol 65 mg/dL (40-59); LDL Cholesterol,Calculated 49 mg/dL (0-99); Osmolality,Calculated 290 (280-300); Potassium 3.9 mEq/L (3.5-5.1); Sodium 140 mEq/L (136-145); Triglycerides 64 mg/dL (< 150); eGFR For African Americans > 60 (> 60); eGFR For Non-African Americans > 60 (> 60)
[2018-02-05 05:01] LABS: Activated Partial Thrombo Time 176.6 Seconds (26.0-36.0)
[2018-02-05 05:20] LABS: Heparin anti-factor XA UFH 0.93 IU/mL (0.30-0.70)
[2018-02-05] MEDS: Aspirin Enteric Coated 81 MG Tablet PO SCH (08:19)
[2018-02-05] MEDS: Cyanocobalamin (B-12) 1,000 MCG TABLET PO SCH (08:47)
--- NOTE | 2018-02-05 10:36 | Cardiology Consult Note ---
<Juan Diego Galindo - Last Filed: 02/05/18 10:40> Date of Encounter: 02/05/18 Time of Encounter: 10:30 Assessment and Plan (1) Chest pain Status: Acute C/o atypical chest pain. Troponin negative x3. EKG with no acute ST changes. Reports minimal CAD on LHC one year ago. Will order reports from [facility]. Check device for arrhythmias. Check TTE. Okay to stop heparin gtt. ACS ruled out. Qualifiers: Chest pain type: unspecified Qualified Code(s): R07.9 - Chest pain, unspecified (2) Nonsustained ventricular tachycardia Status: Acute NSVT seen in EMS and caught on telemetry. Check TTE. Check PPM. electrolytes are normal. Keep potassium around 4.0 and magnesium around 2.0. Reported Minimal CAD on LHC one year ago. WIll obtain records from [facility]. Discussion w patient/family: The assessment and plan as outlined above was discussed with the patient and/or family members who expressed understanding and agreement. All questions were answered. Thank you for involving us in the care of your patient. Please call with any questions. History of Present Illness Consult date: 02/05/18 Requesting physician: Aida Mcduffie Consult reason: Chest pain, VT Chief complaint: Chest pain History of present illness: Ms. Mccall is a 62 year old female with past medical history of SSS s/p PPM, HTN, and gastric bypass who presents with chest pain. C/o left sided dull ache and intense pressure in her left chest while laying in bed. She took two SL NTG at home with minimal relief and called EMS. While in EMS she was reported to have a run of NSVT that spontaneously resolved. She states she felt similar chest discomfort before but not as bad. On February 26 2017 she underwent LHC at [facility] and was found to have minimal CAD (per patient). Troponin are negative x3. Reports history of tachycardia. She follows with Dr. Olguin at [facility]. Past Med Surg Social Fam HX - Past Medical History Medical history: non-contributory, hypertension, other (SSS, atrial tachycardia) Psychiatric history: no psych history - Past Surgical History Surgical History: cholecystectomy, hysterectomy, pacemaker - Social History Smoking Status: Never smoker Smokeless Tobacco Status: No Alcohol use: occasionally Drug use: none - Family History Father Hx Family Cardiac Disorders: Yes (HTN) Medications and Allergies Aspirin Enteric Coated [Aspirin EC] 81 mg PO QAM 12/30/17 [History] Atorvastatin Calcium [Lipitor] 20 mg PO QAM 12/30/17 [History] BuPROPion XL (24 HR) [Wellbutrin Xl] 150 mg PO HS 12/30/17 [History] Cyanocobalamin (Vitamin B-12) [Vitamin B12] 1,000 mcg PO QAM 12/30/17 [History] Ergocalciferol (VITAMIN D2) [Vitamin D2] 50,000 unit PO RETANA 12/30/17 [History] Levothyroxine Sodium [Levoxyl] 88 mcg PO QAM 12/30/17 [History] Omeprazole [PriLOSEC] 40 mg PO BID 12/30/17 [History] Paroxetine HCl [Paxil] 40 mg PO HS 12/30/17 [History] Trazodone HCl 100 mg PO HS 12/30/17 [History] dilTIAZem HCl [Diltiazem 24Hr ER] 120 mg PO HS 12/30/17 [History] Methocarbamol [Robaxin] 1,000 mg PO QID PRN 02/05/18 [History] 3 Allergy/AdvReac Type Severity Reaction Status Date / Time codeine AdvReac Itching Verified 02/05/18 08:59 All Systems Review: The remainder of the systems were reviewed and are negative Physical Examination Vital Signs, Last 4 Hours Temp Pulse Resp BP Pulse Ox 02/05/18 08:51 99 02/05/18 08:19 97.9 F 62 14 115/58 100 General: Conversant, No Apparent Distress HEENT: Atraumatic, Normocephaly, Mucus Membranes Moist Neck: No JVD, Normal carotid pulses Cardiac: Reg Rate and Rhythm, Normal S1 and S2, No Murmur Lungs: Normal Breath Sounds, No Wheeze, Rales, Rhonchi Neuro: Alert and responsive, No focal deficits noted Abdomen: Soft, Non-Tender Skin: No rashes noted on visualized skin Musculoskeletal: No Chest Wall Tenderness Extremities: No Clubbing, No Cyanosis, No Edema, Normal Pulses Results 02/05/18 04:00 02/05/18 04:00 Lab Results 02/05/18 02/05/18 02/05/18 04:00 04:00 04:00 WBC 7.1 Hgb 10.2 L Hct 32.6 L Plt Count 207 APTT Sodium 140 Potassium 3.9 Chloride 107 Carbon Dioxide 33 H BUN 15 Creatinine 0.87 Glucose 91 Calcium 8.9 Troponin I < 0.03 02/05/18 02/05/18 04:00 09:54 WBC Hgb Hct Plt Count APTT 176.6 H* D Sodium Potassium Chloride Carbon Dioxide BUN Creatinine Glucose Calcium Troponin I < 0.03 - Imaging and Cardiology Echo: pending Cardiac cath: other (reports ordered) - EKG Interpretation EKG results cardiology: personally reviewed (SR, no acute ST changes) Consult Discharge Plan - Plan Additional Instructions: Return to ER for new or worsening symptoms. Followup with family doctor and bird raiser as scheduled. Referrals: Roby Chin MD [Non-Partnered Physician] - 02/14/18 9:30 am (Dr. Steiner unavailable for 1 week followup - followup with Dr. Chin in same office. ) Casandra Olguin MD [Non-Partnered Physician] - 02/21/18 8:30 am (Cardiology, [facility], 1 week ) <Roby Serra - Last Filed: 02/12/18 20:34> Date of Encounter: 02/05/18 Time of Encounter: 17:00 - Attending Attestation I have personally performed a face to face evaluation on this patient. I have reviewed and agree with the care plan. History and Exam by me shows: CC: chest pain PT reports sudden onset left sided chest Pain, , dull ache, occurred at rest, lasted twenty minutes, 8/10 at most severe, not relieved with two sl ntg, called squad, evaluated, chest pain resolved in route to ER. EMS thought she had a run of NSVT on monitor, but could not catch strip. She is now pain free. She has a history of similar chest pain, underwent LHC 2017 at [facility], reportedly normal coronaries. PMH: reviewed, [facility] records requested PE: pt seen and examined, agree with documentation as above IMP 1. Chest pain, atypical, has ruled out for acute myocardial necrosis, previous stress/cath normal, eval for non cardiac causes of chest pain 2. NSVT: not able to locate rhythm strip, now in NSR 3. SSS with [facility] - will interogate, determine if had significant arrhythmia, further recomendations to follow. Will follow with you as pacer interrogation and old records obtained. Assessment and Plan Discussion w patient/family: The assessment and plan as outlined above was discussed with the patient and/or family members who expressed understanding and agreement. All questions were answered. Thank you for involving us in the care of your patient. Please call with any questions. History of Present Illness History of present illness: Ms. Mccall is a 62 year old female All Systems Review: The remainder of the systems were reviewed and are negative Results 02/05/18 04:00 02/05/18 04:00
[2018-02-05] MEDS: Nitroglycerin 0.4 MG TAB.SUBL SL PRN (11:12)
[2018-02-05] MEDS ORDERED: Ketorolac 30 MG/ML VIAL IVP ONE (13:14)
[2018-02-05] MEDS ORDERED: Methocarbamol 500 MG TABLET PO PRN (13:16)
[2018-02-05] MEDS: Ondansetron 4 MG/2 ML VIAL IVP PRN (14:07)
--- NOTE | 2018-02-05 16:19 | Internal Med Progress Note ---
Date of Encounter: 02/05/18 Time of Encounter: 16:08 - Assessment and plan (1) Chest pain Current Visit: Yes Status: Acute Assessment and plan: Continues to have mild chest pain. Treated with nitroglycerin. Cardiology consult appreciated. Recommended to stop IV heparin. We will obtain records from [facility] and follow. Qualifiers: Chest pain type: precordial pain Qualified Code(s): R07.2 - Precordial pain (2) Nonsustained ventricular tachycardia Current Visit: Yes Status: Acute Assessment and plan: Continue to monitor with telemetry. Cardiology following. (3) Hypertension Current Visit: Yes Status: Chronic Assessment and plan: Blood pressure is well controlled. Continue Cardizem Qualifiers: Hypertension type: essential hypertension Qualified Code(s): I10 - Essential (primary) hypertension (4) Sick sinus syndrome Current Visit: No Status: Chronic Assessment and plan: Status post permanent pacemaker (5) History of permanent cardiac pacemaker placement Current Visit: No Status: Chronic Assessment and plan: Cardiology will check pacemaker. (6) Neck pain, bilateral Current Visit: Yes Status: Acute Assessment and plan: Patient having bilateral neck pain. Without any rigidity. Could be from muscle spasm. Patient does take methocarbamol at home. Will resume. If no improvement, consider CT scan of the circumflex the cervical spine for further evaluation. No signs of meningitis at this time - Time Spent With Patient Total time spent is greater than 50% in coordination of care (as documented) at patient's floor/unit and/or counseling patient: - Subjective Interval history: Patient complains of continued mild chest pain. No relation to activity. Also has bilateral neck pain. No neck rigidity or stiffness. No photophobia. No fever or chills. No shortness of breath. - Constitutional Vitals: Temp Pulse Resp BP Pulse Ox 98 F 60 20 126/60 96 02/05/18 14:02 02/05/18 14:02 02/05/18 14:02 02/05/18 14:02 02/05/18 14:02 General appearance: Present: cooperative, A&O X 3, answers questions appropriately - Neck Neck exam general surgery: Present: supple, trachea midline. Absent: lymphadenopathy - Respiratory Respiratory exam: Present: CTAB. Absent: accessory muscle use, rales, rhonchi, wheezes - Cardiovascular Cardiovascular exam: Present: RRR, +S1, +S2. Absent: diastolic murmur, gallop, rubs, systolic murmur - GI/Abdominal GI/Abdominal exam: Present: normal bowel sounds, soft, no peritoneal signs. Absent: distended, tenderness - Extremities Exam Extremities exam: Present: warm, radial pulses palpable and symmetrical. Absent : calf tenderness, cyanotic, pedal edema - Neurological Exam Neurological exam: Present: CN II-XII intact, oriented X3, no focal deficits. Absent: facial droop, speech deficit - Skin Skin exam: Present: dry, intact Internal Medicine: Result - Labs CBC & Chem 7: 02/05/18 04:00 02/05/18 04:00 Labs: Short CBC 02/05/18 Range/Units 04:00 WBC 7.1 (4.3-11.1) K/mcL Hgb 10.2 L (11.5-15.4) g/dL Hct 32.6 L (35.3-44.9) % Plt Count 207 (140-400) K/mcL BMP 02/05/18 04:00 Sodium 140 Potassium 3.9 Chloride 107 Carbon Dioxide 33 H BUN 15 Creatinine 0.87 Glucose 91 Calcium 8.9 Cardiac Enzymes 02/05/18 02/05/18 Range/Units 04:00 09:54 Troponin I < 0.03 < 0.03 (< 0.04) ng/mL - ABG Interpretation ABG results: PT/INR, D-dimer PT 11.0 Seconds (9.4-12.1) 02/04/18 19:19 Consult Discharge Plan - Plan Referrals: Arlyn Mason MD [Family Provider] - Dariana Steiner MD [Primary Care Provider] -
[2018-02-05] MEDS: *HR* Heparin 5,000 UNIT/ML VIAL SQ SCH (17:24)
[2018-02-05] MEDS ORDERED: Diltiazem CD (24hr) 120 MG CAPSULE PO SCH (21:00)
[2018-02-05] MEDS: traZODone 50 MG TABLET PO SCH (21:49)
[2018-02-06 01:35] LABS: Carbon Dioxide 24 mEq/L (23-29)
[2018-02-06] MEDS: *HR* Heparin 5,000 UNIT/ML VIAL SQ SCH ×2 (06:38→16:27)
[2018-02-06] MEDS: Aspirin Enteric Coated 81 MG Tablet PO SCH (12:15)
[2018-02-06] MEDS: Cyanocobalamin (B-12) 1,000 MCG TABLET PO SCH (12:15)
[2018-02-06] MEDS: Ondansetron 4 MG/2 ML VIAL IVP PRN (12:15)
--- NOTE | 2018-02-06 13:21 | Event Note ---
Date of Encounter: 02/06/18 Time of Encounter: 08:00 - Cardiology Event Note Inpatient device check completed 02/05/18 and reviewed. Normal functioning device. No events recorded. 23% atrial pacing and 3% V pacing. 10 years on battery.
--- NOTE | 2018-02-06 13:24 | Cardiology Progress Note ---
Date of Encounter: 02/06/18 Time of Encounter: 13:21 Assessment and Plan (1) Chest pain Current Visit: Yes Status: Acute C/o atypical chest pain. Troponin negative x3. EKG with no acute ST changes. Reports minimal CAD on LHC one year ago. Recieved in-complete reports from [facility]. Discussed with nursing staff. They are re-ordering. We did receive ED visit report from 09/2017. Report note states patient seen for chest pain and recent TTE and LHC was unremarkable. Device check did not show any arrhythmias. Check TTE today. If no concerning findings cardiology will sign off. Patient can follow with her Stoper at [facility], Dr. Olguin. Qualifiers: Chest pain type: precordial pain Qualified Code(s): R07.2 - Precordial pain (2) Nonsustained ventricular tachycardia Current Visit: Yes Status: Acute Rhythm concerning for NSVT seen in EMS and caught on telemetry. Device check completed and showed no arrythmias. Reviewed rhythm from EMS with Dr. Serra, likely artifact. Check TTE. Electrolytes are normal. Reported Minimal CAD on C one year ago. If no concerning findings on TTE , no further cardiac testing suspected. Discussion w patient/family: The assessment and plan as outlined above was discussed with the patient and/or family members who expressed understanding and agreement. All questions were answered. Thank you for involving us in the care of your patient. Please call with any questions. Subjective Principal diagnosis: Chest pain Interval history: Ms. Mccall denies recurrent chest pain. C/o headache. Objective Vital Signs, Last 4 Hours Pulse Resp BP Pulse Ox 02/06/18 12:09 69 16 108/61 95 General: Conversant, No Apparent Distress HEENT: Atraumatic, Normocephaly, Mucus Membranes Moist Neck: No JVD, Normal carotid pulses Cardiac: Reg Rate and Rhythm, Normal S1 and S2, No Murmur Lungs: Normal Breath Sounds, No Wheeze, Rales, Rhonchi Neuro: Alert and responsive, No focal deficits noted Abdomen: Soft, Non-Tender Skin: No rashes noted on visualized skin Musculoskeletal: No Chest Wall Tenderness Extremities: No Clubbing, No Cyanosis, No Edema, Normal Pulses Results 02/05/18 04:00 02/05/18 04:00 Lab Results 04/09/18 04:00 Carbon Dioxide 24 - Imaging and Cardiology Echo: pending - EKG Interpretation EKG results cardiology: personally reviewed Consult Discharge Plan - Plan Referrals: Arlyn Mason MD [Family Provider] - Dariana Steiner MD [Primary Care Provider] -
--- NOTE | 2018-02-06 14:57 | Internal Med Progress Note ---
Date of Encounter: 02/06/18 Time of Encounter: 14:53 - Assessment and plan (1) Chest pain Current Visit: Yes Status: Acute Assessment and plan: - She recently was admitted to [facility] for the same complaints, workup including coronary angiogram revealed minimum disease. - She had nuclear stress test 1 month ago here which also was negative for ischemia. - Troponin negative 3, EKG no acute changes. - Cardiology following, pending TTE results. Qualifiers: Chest pain type: precordial pain Qualified Code(s): R07.2 - Precordial pain (2) Hypertension Current Visit: Yes Status: Chronic Assessment and plan: [facility] Qualifiers: Hypertension type: essential hypertension Qualified Code(s): I10 - Essential (primary) hypertension (3) History of permanent cardiac pacemaker placement Current Visit: No Status: Chronic (4) Sick sinus syndrome Current Visit: No Status: Chronic (5) Nonsustained ventricular tachycardia Current Visit: Yes Status: Acute Assessment and plan: -Pacemaker rhythm check no V. tach was found. - Likely artifact per cardiology. (6) Neck pain, bilateral Current Visit: Yes Status: Acute Assessment and plan: Patient having bilateral neck pain. Without any rigidity. Could be from muscle spasm. Patient does take methocarbamol at home. No signs of meningitis at this time. - Time Spent With Patient Total time spent is greater than 50% in coordination of care (as documented) at patient's floor/unit and/or counseling patient: Greater than 35 minutes - Subjective Interval history: Patient resting in bed, she has no chest pain. - Constitutional Vitals: Temp Pulse Resp BP Pulse Ox 98.1 F 69 16 108/61 95 02/06/18 08:27 02/06/18 12:09 02/06/18 12:09 02/06/18 12:09 02/06/18 12:09 General appearance: Present: cooperative, A&O X 3, answers questions appropriately Exam: PHYSICAL EXAMINATION: GENERAL APPEARANCE: The patient is alert, oriented and in no acute distress. HEENT: Head is normocephalic. The sinuses are nontender. Pupils are equal and reactive. The nares are patent. Oropharynx clear without lesions. NECK: Supple without lymphadenopathy. HEART: Regular rate and rhythm. LUNGS: No crackles or wheezes are heard. ABDOMEN: Soft, nontender, nondistended with good bowel sounds heard. Inguinal area is normal. EXTREMITIES: Without cyanosis, clubbing or edema. NEUROLOGICAL: Gross nonfocal. SKIN: Warm and dry without any rash. Internal Medicine: Result - Labs CBC & Chem 7: 02/05/18 04:00 02/05/18 04:00 Labs: BMP 02/05/18 04:00 Carbon Dioxide 24 - ABG Interpretation ABG results: PT/INR, D-dimer PT 11.0 Seconds (9.4-12.1) 02/04/18 19:19 Consult Discharge Plan - Plan Referrals: Arlyn Mason MD [Family Provider] - Dariana Steiner MD [Primary Care Provider] -
[2018-02-06] MEDS ORDERED: *HR* Promethazine 25 MG/ML VIAL IVP ONE (17:49)
[2018-02-06] MEDS: BuPROPion XL (24 HR) 150 MG TABLET PO SCH (20:49)
--- NOTE | 2018-02-06 22:48 | Electrocardiograph Report ---
[facility] Test Date: 2018-02-04 Pat Name: Julianne Mccall Department: 103 Room: [facility] Gender: F Greeting Card Writer: LRBridget : 1955 Requested By: Donovan Saeed Order Number: [id number] Reading MD: Tova Macedo Measurements Intervals [place] Rate: 59 P: 26 UT: 204 QRS: -3 QRSD: 88 T: 35 QT: 402 QTc: 401 Interpretive Statements SINUS BRADYCARDIA POSSIBLE RIGHT VENTRICULAR CONDUCTION DELAY [RSR (QR) IN V1/V2] Electronically Signed On 02-06-2018 22:46:18 EDT by Tova Macedo
[2018-02-07] MEDS: BuPROPion XL (24 HR) 150 MG TABLET PO SCH (00:18)
[2018-02-07] MEDS: traZODone 50 MG TABLET PO SCH (00:25)
[2018-02-07] MEDS: *HR* Heparin 5,000 UNIT/ML VIAL SQ SCH (06:04)
[2018-02-07] MEDS: Cyanocobalamin (B-12) 1,000 MCG TABLET PO SCH (07:36)
[2018-02-07] MEDS: Aspirin Enteric Coated 81 MG Tablet PO SCH (07:36)
--- NOTE | 2018-02-07 09:55 | Cardiology Progress Note ---
Date of Encounter: 02/07/18 Time of Encounter: 09:55 Assessment and Plan (1) Chest pain Current Visit: Yes Status: Acute C/o atypical chest pain. Troponin negative x3. EKG with no acute ST changes. Reports minimal CAD on [facility] one year ago. Received in-complete reports from [facility]. Discussed with nursing staff. They are re-ordering. We did receive ED visit report from 09/2017. Report note states patient seen for chest pain and recent TTE and LHC was unremarkable. Device check did not show any arrhythmias. TTE shows preserved EF, no WMA. No further testing recommended. Recommend r/o non-cardiac cause of chest pain. Patient follows with Dr. Olguin at [facility]. Qualifiers: Chest pain type: precordial pain Qualified Code(s): R07.2 - Precordial pain (2) Nonsustained ventricular tachycardia Current Visit: Yes Status: Acute Rhythm concerning for NSVT seen in EMS and caught on telemetry. Device check completed and showed no arrythmias. Reviewed rhythm from EMS with Dr. Serra, likely artifact. TTE shows preserved EF. Electrolytes are normal. Reported Minimal CAD on [facility] one year ago. No further testing at this time. Discussion w patient/family: The assessment and plan as outlined above was discussed with the patient and/or family members who expressed understanding and agreement. All questions were answered. Thank you for involving us in the care of your patient. Please call with any questions. Subjective Principal diagnosis: Chest pain Interval history: Ms. Mccall denies recurrent chest pain. C/o headache. Objective Vital Signs, Last 4 Hours Temp Pulse Resp BP Pulse Ox 02/07/18 07:00 98.4 F 64 16 109/64 97 General: Conversant, No Apparent Distress HEENT: Atraumatic, Normocephaly, Mucus Membranes Moist Neck: No JVD, Normal carotid pulses Cardiac: Reg Rate and Rhythm, Normal S1 and S2, No Murmur Lungs: Normal Breath Sounds, No Wheeze, Rales, Rhonchi Neuro: Alert and responsive, No focal deficits noted Abdomen: Soft, Non-Tender Skin: No rashes noted on visualized skin Musculoskeletal: No Chest Wall Tenderness Extremities: No Clubbing, No Cyanosis, No Edema, Normal Pulses Results 02/05/18 04:00 02/05/18 04:00 - Imaging and Cardiology Echo: report reviewed - EKG Interpretation EKG results cardiology: personally reviewed Consult Discharge Plan - Plan Referrals: Arlyn Mason MD [Family Provider] - Dariana Steiner MD [Primary Care Provider] -
--- NOTE | 2018-02-07 13:14 | Discharge Summary ---
- NOTES TO OUTPATIENT PROVIDER Notes to Outpatient Provider: f/u with cardiology within a week. f/u with PCP within a week. Date of Encounter: 02/07/18 Time of Encounter: 13:10 - Discharge Diagnosis (1) Chest pain Priority: Primary Status: Acute Qualifiers: Chest pain type: precordial pain Qualified Code(s): R07.2 - Precordial pain (2) Hypertension Priority: Secondary Status: Chronic Qualifiers: Hypertension type: essential hypertension Qualified Code(s): I10 - Essential (primary) hypertension (3) History of permanent cardiac pacemaker placement Priority: Secondary Status: Chronic (4) Sick sinus syndrome Priority: Secondary Status: Chronic (5) Nonsustained ventricular tachycardia Priority: Primary Status: Ruled-out (6) Neck pain, bilateral Priority: Secondary Status: Acute Hospital course: Ms. Mccall is a 62 year old female with past medical history of sick sinus syndrome, implanted pacemaker, and anxiety presented to the ED with chest pain and 1 episode of nonsustained V. tach. She has similar episodes 1 year ago and was worked up at [facility], per patient, coronary angiogram at that time showed minimal disease. She came back to this hospital last month with similar complaints, echocardiogram and stress nuclear test both were reassuring. Patient described her chest pain was sub-sternal, relieved by nitroglycerin, which seems typical chest pain. She was treated with nitroglycerin and heparin drip. Cardiology was consulted. Further testing including troponin and EKG both were normal. A repeat TTE showed no new wall motion abnormalities and the preserved ejection fraction. Pacemaker interrogation revealed no previous ventricular tachycardia. Clinical Nurse Occupational Medicine think the reported nonsustained V. tach was artifact. Her chest pain was deemed as non-cardiac related. She will be discharged home today. She was instructed to follow up with cardiology and primary care physician within one week. Discharge discussed with: patient Time spent discussing smoking cessation with patient: more than 10 minutes - Time Spent with Patient Total time spent providing and/or coordinating discharge services: Greater than 30 minutes - Discharge Medications Home Medications: Aspirin Enteric Coated [Aspirin EC] 81 mg PO QAM 12/30/17 [History] Atorvastatin Calcium [Lipitor] 20 mg PO QAM 12/30/17 [History] BuPROPion XL (24 HR) [Wellbutrin Xl] 150 mg PO HS 12/30/17 [History] Cyanocobalamin (Vitamin B-12) [Vitamin B12] 1,000 mcg PO QAM 12/30/17 [History] Ergocalciferol (VITAMIN D2) [Vitamin D2] 50,000 unit PO RETANA 12/30/17 [History] Levothyroxine Sodium [Levoxyl] 88 mcg PO QAM 12/30/17 [History] Omeprazole [PriLOSEC] 40 mg PO BID 12/30/17 [History] Paroxetine HCl [Paxil] 40 mg PO HS 12/30/17 [History] Trazodone HCl 100 mg PO HS 12/30/17 [History] dilTIAZem HCl [Diltiazem 24Hr ER] 120 mg PO HS 12/30/17 [History] Methocarbamol [Robaxin] 1,000 mg PO QID PRN 02/05/18 [History] Allergies/Adverse Reactions: 3 Allergy/AdvReac Type Severity Reaction Status Date / Time codeine AdvReac Itching Verified 02/05/18 08:59 Date of admission: 02/04/18 23:16 Primary care physician: Dariana Steiner Consults: 02/05/18 08:12 Consult to Cardiology [CONS] Routine Comment: Consulting Provider: Cardiology Delicia Reason for Consult: Typical chest pain/ NSVT Time Notified: 08:13 Call Completed: Yes Anticipated date of discharge: 02/07/18 - Constitutional Vitals: Temp Pulse Resp BP Pulse Ox 98.7 F 68 16 107/68 97 02/07/18 09:57 02/07/18 09:57 02/07/18 09:57 02/07/18 09:57 02/07/18 09:57 General appearance: Present: cooperative, A&O X 3, answers questions appropriately Exam: PHYSICAL EXAMINATION: GENERAL APPEARANCE: The patient is alert, oriented and in no acute distress. HEENT: Head is normocephalic. The sinuses are nontender. Pupils are equal and reactive. The nares are patent. Oropharynx clear without lesions. NECK: Supple without lymphadenopathy. HEART: Regular rate and rhythm. LUNGS: No crackles or wheezes are heard. ABDOMEN: Soft, nontender, nondistended with good bowel sounds heard. Inguinal area is normal. EXTREMITIES: Without cyanosis, clubbing or edema. NEUROLOGICAL: Gross nonfocal. SKIN: Warm and dry without any rash. - Patient Status Disposition: Home, Self-Care Condition: Good Functional capacity at discharge: independent ambulation Overall status at discharge: patient is back to baseline - Discharge Instructions Follow Up With: Arlyn Mason MD [Family Provider] - Dariana Steiner MD [Primary Care Provider] - - Diet and Activity Activity: increase activity as tolerated Diet: low fat, low cholesterol, low salt diet
[2018-02-07 17:07] VITALS: BP 105/67
--- NOTE | 2018-02-08 16:45 | Electrocardiograph Report ---
[place] [id number] Test Date: 2018-02-05 Pat Name: Julianne Mccall Department: 104 Room: [facility] Gender: F Manager Valuation: [id number] : 1955 Requested By: Mireya Larios Order Number: [id number] Reading MD: Herson Cam Measurements Intervals [place] Rate: 57 P: 12 AL: 206 QRS: -11 QRSD: 93 T: 34 QT: 347 QTc: 342 Interpretive Statements SINUS BRADYCARDIA NONSPECIFIC T-WAVE ABNORMALITY Electronically Signed On 02-08-2018 16:44:10 EDT by Herson Cam
== END 2018-02-07 19:02 | disposition home or self-care (01) ==
LOC: EMEROO 19:11 → 2SOUTHHOLD 19:11 → 3NENU 02-06 14:54
PROVIDERS: ADMIT Internal Medicine; ATTEND Internal Medicine

== ENCOUNTER 2020-01-12 22:44 | Observation (INO) ==
[2020-01-12 23:05] LABS: Basophils # 0.1 K/mcL (0.0-0.2); Basophils % 0.8 %; Eosinophils # 0.2 K/mcL (0.0-0.6); Eosinophils % 2.5 %; Hematocrit 36.8 % (35.3-44.9); Hemoglobin 12.3 g/dL (11.5-15.4); Immature Granulocytes % 0.3 % (0-4); Lymphocytes # 4.1 K/mcL (0.6-4.6); Mean Corpuscular HGB Conc 33.4 g/dL (31.6-35.5); Mean Corpuscular Hemoglobin 29.8 pg (28.0-33.3); Mean Corpuscular Volume 89.1 fL (83.0-100.0); Mean Platelet Volume 9.3 fL (9.4-12.4); Monocytes # 0.7 K/mcL (0.0-1.3); Monocytes % 7.8 %; Neutrophils # 3.8 K/mcL (1.6-8.9); Platelet Count 249 K/mcL (140-400); Red Blood Count 4.13 M/mcL (3.82-4.97); Red Cell Distribution Width 12.8 % (11.5-14.5); Segmented Neutrophils % 42.6 %; White Blood Count 8.9 K/mcL (4.3-11.1)
[2020-01-12 23:23] LABS: BUN/Creatinine Ratio 14 (6-26); Blood Urea Nitrogen 10 mg/dL (8-23); Calcium 8.5 mg/dL (8.6-10.3); Carbon Dioxide 25 mEq/L (23-29); Chloride 93 mEq/L (98-107); Glucose 90 mg/dL (70-105); Osmolality,Calculated 255 (280-300); Potassium 3.8 mEq/L (3.5-5.1); Sodium 123 mEq/L (136-145); eGFR For African Americans > 60 (> 60); eGFR For Non-African Americans > 60 (> 60)
[2020-01-12 23:25] LABS: Troponin I < 0.03 ng/mL (< 0.04)
[2020-01-12 23:54] LABS: Ethanol 295 mg/dL (Less than 10); Magnesium 2.3 mg/dL (1.6-2.6)
[2020-01-13] MEDS ORDERED: Acetaminophen 325 MG TABLET PO PRN (02:45)
[2020-01-13] MEDS ORDERED: Naloxone 0.4 MG/ML INJ IVP PRN (02:45)
[2020-01-13] MEDS ORDERED: Ondansetron 4 MG/2 ML VIAL IVP PRN (02:45)
[2020-01-13] MEDS ORDERED: *HR* LORazepam 2 MG/ML VIAL IVP PRN ×3 (02:49→16:10)
[2020-01-13 03:14] LABS: Sodium 126 mEq/L (136-145)
[2020-01-13 03:53] LABS: Troponin I < 0.03 ng/mL (< 0.04)
[2020-01-13 04:37] LABS: Basophils % 0.7 %; Eosinophils # 0.2 K/mcL (0.0-0.6); Eosinophils % 3.1 %; Hematocrit 35.6 % (35.3-44.9); Hemoglobin 11.9 g/dL (11.5-15.4); Immature Granulocytes % 0.3 % (0-4); Lymphocytes # 2.7 K/mcL (0.6-4.6); Lymphocytes % 44.1 %; Mean Corpuscular HGB Conc 33.4 g/dL (31.6-35.5); Mean Corpuscular Hemoglobin 29.5 pg (28.0-33.3); Mean Corpuscular Volume 88.1 fL (83.0-100.0); Mean Platelet Volume 9.6 fL (9.4-12.4); Monocytes # 0.4 K/mcL (0.0-1.3); Monocytes % 6.7 %; Neutrophils # 2.8 K/mcL (1.6-8.9); Platelet Count 238 K/mcL (140-400); Red Blood Count 4.04 M/mcL (3.82-4.97); Red Cell Distribution Width 12.7 % (11.5-14.5); Segmented Neutrophils % 45.1 %; White Blood Count 6.1 K/mcL (4.3-11.1)
[2020-01-13 04:39] LABS: Prothrombin Time 11.2 Seconds (9.4-12.1)
[2020-01-13 04:59] LABS: Alanine Aminotransferase 12 Units/L (7-52); Albumin 3.6 g/dL (3.5-5.7); Albumin/Globulin Ratio 1.4 (1.1-2.2); Alkaline Phosphatase 60 Units/L (34-104); Aspartate Amino Transferase 17 Units/L (13-39); BUN/Creatinine Ratio 14 (6-26); Bilirubin,Total 0.3 mg/dL (0.3-1.0); Blood Urea Nitrogen 9 mg/dL (8-23); Calcium 8.4 mg/dL (8.6-10.3); Carbon Dioxide 23 mEq/L (23-29); Chloride 98 mEq/L (98-107); Cholesterol 162 mg/dL (< 200); Globulin 2.5 g/dL (2.4-3.5); Glucose 77 mg/dL (70-105); HDL Cholesterol 54 mg/dL (40-59); LDL Cholesterol,Calculated 66 mg/dL (0-99); Magnesium 2.1 mg/dL (1.6-2.6); Osmolality,Calculated 263 (280-300); Phosphorous 3.4 mg/dL (2.7-4.5); Sodium 128 mEq/L (136-145); Total Protein 6.1 g/dL (6.4-8.9); Triglycerides 209 mg/dL (< 150); eGFR For African Americans > 60 (> 60); eGFR For Non-African Americans > 60 (> 60)
[2020-01-13] MEDS: *HR* Heparin 5,000 UNIT/ML VIAL SQ SCH ×3 (05:33→23:10)
[2020-01-13] MEDS: 0.9 % Sodium Chloride 1,000 ML IVC SCH ×2 (05:33→17:10)
[2020-01-13 07:11] LABS: Bilirubin,Urine Negative (Negative); Blood,Urine Negative (Negative); Clarity,Urine Clear (Clear); Color,Urine Yellow (Yellow); Glucose,Urine (UA) Normal (Normal); Ketones,Urine Negative (Negative); Leukocyte Esterase,Urine Large (Negative); Nitrite,Urine Negative (Negative); Protein,Urine Negative (Neg-Trace); Specific Gravity,Urine 1.008 (1.010-1.025); Urobilinogen,Urine Normal (Normal)
[2020-01-13 07:15] LABS: Bacteria,Urine Moderate per hpf (None-Few); Hyaline Casts,Urine None Seen per lpf (None-Few); RBC,Urine 0-3 per hpf (0-3); Squamous Epithelial Cell,Urine None Seen per lpf (None-Few); WBC,Urine 30-50 per hpf (0-3)
[2020-01-13] MEDS: Thiamine (B-1) 100 MG TABLET PO SCH (09:02)
[2020-01-13] MEDS: Folic Acid 1 MG TABLET PO SCH (09:02)
[2020-01-13] MEDS ORDERED: Nitroglycerin 0.4 MG TAB.SUBL SL PRN (16:01)
[2020-01-13] MEDS ORDERED: PARoxetine 20 MG TABLET PO SCH (21:00)
[2020-01-13] MEDS ORDERED: traZODone 50 MG TABLET PO SCH (23:30)
[2020-01-14 04:36] LABS: Hematocrit 34.8 % (35.3-44.9); Hemoglobin 11.9 g/dL (11.5-15.4); Mean Corpuscular HGB Conc 34.2 g/dL (31.6-35.5); Mean Corpuscular Hemoglobin 30.4 pg (28.0-33.3); Mean Corpuscular Volume 88.8 fL (83.0-100.0); Mean Platelet Volume 9.5 fL (9.4-12.4); Platelet Count 242 K/mcL (140-400); Red Blood Count 3.92 M/mcL (3.82-4.97); Red Cell Distribution Width 13.3 % (11.5-14.5); White Blood Count 5.8 K/mcL (4.3-11.1)
[2020-01-14 05:00] LABS: BUN/Creatinine Ratio 21 (6-26); Blood Urea Nitrogen 18 mg/dL (8-23); Calcium 8.7 mg/dL (8.6-10.3); Carbon Dioxide 27 mEq/L (23-29); Chloride 107 mEq/L (98-107); Glucose 83 mg/dL (70-105); Osmolality,Calculated 289 (280-300); Potassium 3.9 mEq/L (3.5-5.1); Sodium 139 mEq/L (136-145); eGFR For African Americans > 60 (> 60); eGFR For Non-African Americans > 60 (> 60)
[2020-01-14] MEDS ORDERED: Regadenoson 0.4 MG/5 ML SYRINGE IVP ONE (06:20)
[2020-01-14] MEDS: *HR* Heparin 5,000 UNIT/ML VIAL SQ SCH ×2 (06:47→14:19)
[2020-01-14] MEDS: Thiamine (B-1) 100 MG TABLET PO SCH (10:26)
[2020-01-14] MEDS: Folic Acid 1 MG TABLET PO SCH (10:26)
[2020-01-14 10:57] VITALS: BP 131/70
[2020-01-14] MEDS ORDERED: FLU Vac QV 19-20 (6Month+)/PF 0.5 ML SYRINGE IM ONE (12:34)
== END 2020-01-14 16:19 | disposition home or self-care (01) ==
LOC: 2ANU 22:44 → EMEROOARM 22:44 → SUATTDRO 01-13 00:56 → 2ANU 01-13 01:23
PROVIDERS: ADMIT Internal Medicine; ATTEND Family Medicine

== ENCOUNTER 2020-03-24 13:45 | Inpatient (IN) ==
[2020-03-24 14:44] LABS: Basophils # 0.1 K/mcL (0.0-0.2); Basophils % 0.9 %; Eosinophils # 0.2 K/mcL (0.0-0.6); Eosinophils % 3.6 %; Hematocrit 41.6 % (35.3-44.9); Hemoglobin 13.8 g/dL (11.5-15.4); Immature Granulocytes % 0.4 % (0-4); Lymphocytes # 1.6 K/mcL (0.6-4.6); Lymphocytes % 28.3 %; Mean Corpuscular HGB Conc 33.2 g/dL (31.6-35.5); Mean Corpuscular Hemoglobin 29.7 pg (28.0-33.3); Mean Corpuscular Volume 89.5 fL (83.0-100.0); Mean Platelet Volume 10.3 fL (9.4-12.4); Monocytes # 0.6 K/mcL (0.0-1.3); Neutrophils # 3.2 K/mcL (1.6-8.9); Platelet Count 216 K/mcL (140-400); Red Blood Count 4.65 M/mcL (3.82-4.97); Red Cell Distribution Width 13.2 % (11.5-14.5); Segmented Neutrophils % 56.8 %; White Blood Count 5.6 K/mcL (4.3-11.1)
[2020-03-24 14:52] LABS: INR 0.9; Prothrombin Time 10.6 Seconds (9.4-12.1)
[2020-03-24 15:03] LABS: Alanine Aminotransferase 14 Units/L (7-52); Albumin 4.4 g/dL (3.5-5.7); Albumin/Globulin Ratio 1.5 (1.1-2.2); Alkaline Phosphatase 79 Units/L (34-104); Aspartate Amino Transferase 18 Units/L (13-39); BUN/Creatinine Ratio 25 (6-26); Bilirubin,Total 0.5 mg/dL (0.3-1.0); Blood Urea Nitrogen 24 mg/dL (8-23); Calcium 9.5 mg/dL (8.6-10.3); Carbon Dioxide 23 mEq/L (23-29); Chloride 109 mEq/L (98-107); Globulin 2.9 g/dL (2.4-3.5); Glucose 106 mg/dL (70-105); Osmolality,Calculated 296 (280-300); Sodium 141 mEq/L (136-145); Total Protein 7.3 g/dL (6.4-8.9); Troponin I < 0.03 ng/mL (< 0.04); eGFR For African Americans > 60 (> 60); eGFR For Non-African Americans 59 (> 60)
[2020-03-24 15:10] LABS: Bilirubin,Urine Negative (Negative); Blood,Urine Negative (Negative); Clarity,Urine Cloudy (Clear); Color,Urine Yellow (Yellow); Glucose,Urine (UA) Normal (Normal); Ketones,Urine Negative (Negative); Leukocyte Esterase,Urine Moderate (Negative); Nitrite,Urine Positive (Negative); Protein,Urine Negative (Neg-Trace); Specific Gravity,Urine 1.018 (1.010-1.025); Urobilinogen,Urine Normal (Normal)
[2020-03-24 15:12] LABS: Bacteria,Urine Many per hpf (None-Few); Hyaline Casts,Urine None Seen per lpf (None-Few); RBC,Urine 0-3 per hpf (0-3); Squamous Epithelial Cell,Urine Moderate per lpf (None-Few); WBC,Urine 50-100 per hpf (0-3)
[2020-03-24] MEDS ORDERED: cefTRIAXone 1,000 MG in Water for inj. (sterile) 10 ML IVP ONE (16:21)
[2020-03-24] MEDS ORDERED: Acetaminophen 325 MG TABLET PO PRN (16:37)
[2020-03-24] MEDS ORDERED: Ondansetron ODT 4 MG TAB.RAPDIS SL PRN (16:37)
[2020-03-24] MEDS ORDERED: Naloxone 0.4 MG/ML INJ IVP PRN (16:37)
[2020-03-24] MEDS: 0.9 % Sodium Chloride 1,000 ML IV ONE ×2 (16:56→18:05)
[2020-03-24] MEDS ORDERED: 0.9 % Sodium Chloride 1,000 ML IVC SCH (17:45)
[2020-03-24] MEDS: *HR* Heparin 5,000 UNIT/ML VIAL SQ SCH (18:18)
[2020-03-24] MEDS: traZODone 50 MG TABLET PO SCH (23:28)
[2020-03-24] MEDS: PARoxetine 20 MG TABLET PO SCH (23:30)
[2020-03-25 02:42] LABS: Hematocrit 36.2 % (35.3-44.9); Hemoglobin 11.7 g/dL (11.5-15.4); Mean Corpuscular HGB Conc 32.3 g/dL (31.6-35.5); Mean Corpuscular Hemoglobin 29.8 pg (28.0-33.3); Mean Corpuscular Volume 92.1 fL (83.0-100.0); Mean Platelet Volume 10.2 fL (9.4-12.4); Platelet Count 191 K/mcL (140-400); Red Blood Count 3.93 M/mcL (3.82-4.97); Red Cell Distribution Width 13.2 % (11.5-14.5); White Blood Count 6.7 K/mcL (4.3-11.1)
[2020-03-25 03:00] LABS: Calcium 8.5 mg/dL (8.6-10.3); Potassium 3.9 mEq/L (3.5-5.1)
[2020-03-25] MEDS: *HR* Heparin 5,000 UNIT/ML VIAL SQ SCH ×2 (05:41→16:20)
[2020-03-25] MEDS ORDERED: cefTRIAXone 1,000 MG in Water for inj. (sterile) 10 ML IVP SCH (09:00)
[2020-03-25] MEDS ORDERED: Baclofen 10 MG TABLET PO PRN (10:18)
[2020-03-25] MEDS: PARoxetine 20 MG TABLET PO SCH (20:26)
[2020-03-26] MEDS: traZODone 50 MG TABLET PO SCH (00:04)
[2020-03-26 05:19] LABS: BUN/Creatinine Ratio 20 (6-26); Blood Urea Nitrogen 18 mg/dL (8-23); Carbon Dioxide 28 mEq/L (23-29); Chloride 107 mEq/L (98-107); Glucose 89 mg/dL (70-105); Osmolality,Calculated 291 (280-300); Potassium 4.3 mEq/L (3.5-5.1); Sodium 140 mEq/L (136-145); eGFR For African Americans > 60 (> 60); eGFR For Non-African Americans > 60 (> 60)
[2020-03-26] MEDS: *HR* Heparin 5,000 UNIT/ML VIAL SQ SCH ×2 (05:42→17:33)
[2020-03-26] MEDS: cephALEXin 250 MG CAPSULE PO SCH ×3 (10:50→20:15)
[2020-03-26] MEDS: PARoxetine 20 MG TABLET PO SCH (20:15)
[2020-03-27] MEDS: traZODone 50 MG TABLET PO SCH (00:26)
[2020-03-27] MEDS: *HR* Heparin 5,000 UNIT/ML VIAL SQ SCH (05:21)
[2020-03-27 07:40] VITALS: BP 114/74
[2020-03-27] MEDS: cephALEXin 250 MG CAPSULE PO SCH (08:00)
== END 2020-03-27 10:43 | disposition home or self-care (01) | DRG 690 ==
LOC: EMEROOARM 13:45 → 3BNU 13:45
PROVIDERS: ADMIT Internal Medicine; ATTEND Internal Medicine